=== PATIENT | female | born 1935 | race Caucasian/White ===

== ENCOUNTER 2016-11-20 07:22 | Emergency (ER) | payer MEDICARE, OTHER ==
[~2016-11-20] VITALS: Ht 157.5 cm; Wt 59.0 kg
[~2016-11-20 07:22] MED LIST: AMIT10 PO; ATOR10 PO; CARV6.25 PO; CREON6 PO; FOLI1 PO; FURO20 PO; HYDR200T3 PO; LEVO50IN PO; LORA0.5T PO; METH2.5 PO; NITR0.4S SL; PLAV75TA PO; POTA10IN2 PO; PRED5SOL PO; RAMI2.5C29 PO; ULTR50TA PO
[2016-11-20 07:28] VITALS: BP 150/95; PULSE 90; RESP 18; TEMP 98.7; O2SAT 94
[2016-11-20] MEDS ORDERED: AMIT10TA6 PO ×2 (07:38)
[2016-11-20] MEDS ORDERED: CARV6.252 PO ×2 (07:38)
[2016-11-20] MEDS ORDERED: CLOP75TA PO ×2 (07:38)
[2016-11-20] MEDS ORDERED: PRED5TAB PO ×2 (07:38)
[2016-11-20] MEDS ORDERED: RAMI2.5C PO ×2 (07:38)
[2016-11-20] MEDS ORDERED: LEVO150T7 PO ×2 (07:38)
[2016-11-20] MEDS ORDERED: CREON6 PO ×2 (07:38)
--- NOTE | 2016-11-20 07:42 | PD ---
HPI Chief Complaint: Pain: Acute or Chronic Time Seen by Provider: 07:33 Travel History International Travel<30 days: No Contact w/Intl Traveler<30days: No Traveled to known affect area: No History of Present Illness HPI Patient is an 81-year-old female who presents to emergency room with complaints of pains from her waist down. Patient reports that she fell a week and a half before [place], reports that she was seen by her primary care doctor and had x -rays performed. Reports that they noted a hairline fracture to her pelvis. Patient reports that she has started rehabilitation, and has been going to rehabilitation for the past 3 months. Patient reports that she had a "hard" session on Friday and has been sore from her rehabilitation session since Friday. Patient denies any new fall or injuries. Patient denies any fever or chills. Patient reports that she feels sore from rehabilitation and came to the ER for evaluation. Reports, "I was told that if I had any pain that I was just supposed to go to the ER so that you can take all my pain away." Patient has not taken any pain medications [id number] including Tylenol or ibuprofen. Patient with no fevers or chills. Patient with no chest pain or shortness of breath. Patient with no other complaints. PFSH Past Medical History Arthritis: Yes Autoimmune Disease: Yes (LUPUS) Blood Disorders: No Depression: Yes Cancer: No Cardiovascular Problems: Yes High Cholesterol: Yes Chemotherapy: No Chest Pain: Yes Congestive Heart Failure: Yes COPD: Yes Cerebrovascular Accident: No Coronary Artery Disease: Yes Diabetes: No Diminished Hearing: Yes Endocrine: Yes Genitourinary: Yes (stress incontinence) Hypertension: Yes Immune Disorder: Yes (lupus) Implanted Vascular Access Dvce: Yes Musculoskeletal: Yes Neurologic: No Psychiatric: Yes Reproductive: No Respiratory: Yes Immunizations Current: Yes Migraines: Yes Myocardial Infarction: Yes Radiation Therapy: No Thyroid Disease: Yes ?: Not Menopausal: Yes Past Surgical History Abdominal Surgery: Yes (AORTA STENOSIS, 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) Appendectomy: Yes (1944) Body Medical Devices: DENTAL IMPLANTS Coronary Artery Bypass Graft: Yes (QUAD BYPASS 1999) Ear Surgery: Yes (BILAT CATATRACTS, MAC DEGENERATION BILAT) Gynecologic Surgery: Yes (HYSTERECTOMY) Hysterectomy: Yes (partial) Tonsillectomy: Yes (1936) Other Surgery: Yes (hysterectomy, appendectomy, CABG 4 vessel 1999) Social History Alcohol Use: No Tobacco Use: No (quit in 1992) Substance Use: No Allergies-Medications (Allergen,Severity, Reaction): Coded Allergies: Sulfa (Verified Allergy, Severe, Rash, 11/20/16) Codeine (Verified Adverse Reaction, Severe, VOMITING, 11/20/16) NAUSEA Reported Meds & Prescriptions Reported Meds & Active Scripts Active Reported Amitriptyline (Amitriptyline HCl) 10 Mg Tab 10 Mg PO BID Ramipril 2.5 Mg Cap 2.5 Mg PO BID Carvedilol 6.25 Mg Tab 6.25 Mg PO BID Prednisone 5 Mg Tab 5 Mg PO DAILY Clopidogrel (Clopidogrel Bisulfate) 75 Mg Tab 75 Mg PO DAILY Levothyroxine (Levothyroxine Sodium) 150 Mcg Tab 150 Mcg PO DAILY Creon (Amylase/Lipase/Protease) 6,000-19,000-30,000 Units Cap 1 Cap PO DAILY Review of Systems General / Constitutional: No: Fever Eyes: No: Visual changes HENT: No: Headaches Cardiovascular: No: Chest Pain or Discomfort Respiratory: No: Shortness of Breath Gastrointestinal: No: Abdominal Pain Genitourinary: No: Dysuria Musculoskeletal: Positive: Myalgias, Arthralgias, No: Pain Skin: No Rash Neurologic: No: Weakness Psychiatric: No: Depression Endocrine: No: Polydipsia Hematologic/Lymphatic: No: Easy Bruising Physical Exam Narrative GENERAL: No acute distress, nontoxic SKIN: Warm and dry. HEAD: Atraumatic. Normocephalic. EYES: Pupils equal and round. No scleral icterus. No injection or drainage. ENT: No nasal bleeding or discharge. Mucous membranes pink and moist. NECK: Trachea midline. No JVD. CARDIOVASCULAR: Regular rate and rhythm. No murmur appreciated. RESPIRATORY: No accessory muscle use. Clear to auscultation. Breath sounds equal bilaterally. GASTROINTESTINAL: Abdomen soft, non-tender, nondistended. Hepatic and splenic margins not palpable. MUSCULOSKELETAL: No obvious deformities. No clubbing. No cyanosis. No edema. NEUROLOGICAL: Awake and alert. No obvious cranial nerve deficits. Motor grossly within normal limits. Normal speech. PSYCHIATRIC: Appropriate mood and affect; insight and judgment normal. Data Data Last Documented VS Vital Signs Date Time Temp Pulse Resp B/P Pulse Ox O2 Delivery O2 Flow Rate FiO2 11/20/16 08:02 92 16 99 11/20/16 07:28 98.7 150/95 Orders Acetaminophen (Tylenol) (11/20/16 07:45) MDM Medical Decision Making Medical Screen Exam Complete: Yes Emergency Medical Condition: Yes Interpretation(s) Vital Signs Date Time Temp Pulse Resp B/P Pulse Ox O2 Delivery O2 Flow Rate FiO2 11/20/16 07:28 98.7 90 18 150/95 94 Differential Diagnosis Muscle strain from Rehab Narrative Course 81-year-old female who suffered a fall 1-1/2 weeks before [place], currently in rehabilitation for the past 3 weeks and she suffered a hairline pelvic fracture and had pains all over body after fall. Patient reports that she had extensive session on Friday and feels increased soreness from her waist down after her session. Patient with no new traumas or any new injuries. Patient here for evaluation of pain. On evaluation, patient with no new injuries, patient with good range of motion to both upper and lower extremity's. Patient has not tried any ibuprofen or acetaminophen as outpatient, will give patient a dose of acetaminophen in ER. Patient with no new falls or injuries, will observe patient after medications given to patient. Patient reevaluated, patient reports that she is feeling much better. Patient instructed to stretch after her rehabilitation sessions. Patient will follow- up with her primary care doctor and will return to ER as needed. Patient requesting to be discharged to home with her sister this time. Diagnosis Primary Impression: Muscle strain Patient Instructions: General Instructions Additional Instructions: Please return to ER as needed Please follow-up with your primary care doctor Disposition: 01 DISCHARGE HOME Condition: Stable Naheed Garcia DO Nov 20, 2016 07:41
[2016-11-20] MEDS ORDERED: ACETAMINOPHEN 325 MG TAB PO ONE (07:45)
[2016-11-20 08:02] VITALS: PULSE 92; RESP 16; O2SAT 99
[2016-11-20 09:07] VITALS: RESP 16
[2016-11-20 09:15] VITALS: BP 146/89
== END 2016-11-20 09:16 | disposition home or self-care (01) ==
LOC: PHED 07:22
DX: S32.89XA Fracture of other parts of pelvis, initial encounter for closed fracture (principal); T14.8 Other injury of unspecified body region; M32.9 Systemic lupus erythematosus, unspecified; F32.9 Major depressive disorder, single episode, unspecified; E78.00 Pure hypercholesterolemia, unspecified; Z95.1 Presence of aortocoronary bypass graft; I25.10 Atherosclerotic heart disease of native coronary artery without angina pectoris; I50.9 Heart failure, unspecified; J44.9 Chronic obstructive pulmonary disease, unspecified; I25.2 Old myocardial infarction; W18.30XD Fall on same level, unspecified, subsequent encounter; Y93.9 Activity, unspecified; Y99.9 Unspecified external cause status
CPT/HCPCS: 99283

== ENCOUNTER 2016-11-21 21:35 | Inpatient (IN) | payer MEDICARE, OTHER ==
[~2016-11-21] VITALS: Ht 165.1 cm; Wt 62.0 kg
[~2016-11-21 21:35] MED LIST changes: +AMIT10TA6 PO; +CARV6.252 PO; +CLOP75TA PO; +LEVO150T7 PO; +PRED5TAB PO; +RAMI2.5C PO
[2016-11-21 21:45] VITALS: BP 127/64; PULSE 59; RESP 18; TEMP 98.6; O2SAT 98
[2016-11-21 22:00] VITALS: RESP 18
[2016-11-21] MEDS ORDERED: SODIUM CHLORIDE 0.9% FLUSH 5 ML FLUSH IVF PRN ×2 (22:00→23:45)
[2016-11-21 22:10] LABS: AUTOMATED NEUTROPHIL # 6.1 TH/MM3 (1.8-7.7); BASOPHIL % 0.2 % (0.0-2.0); EOSINOPHIL % 0.4 % (0.0-4.0); HEMATOCRIT 31.4 % (35.0-46.0); HEMO FLAGS DIFF FINAL; LYMPH % 11.8 % (9.0-44.0); LYMPHOCYTE # 0.9 TH/MM3 (1.0-4.8); MEAN CELL VOLUME 90.8 FL (80.0-100.0); MEAN CORPUSCULAR HGB CONC 34.1 % (32.0-36.0); MONO % 8.9 % (0.0-8.0); NEUT % 78.7 % (16.0-70.0); PLATELET COUNT 240 TH/MM3 (150-450); RED BLOOD COUNT 3.46 MIL/MM3 (4.00-5.30); RED CELL DISTRIBUTION WIDTH 14.1 % (11.6-17.2); WHITE BLOOD COUNT 7.8 TH/MM3 (4.0-11.0)
[2016-11-21 22:15] LABS: APTT (PATIENT) 31.1 SEC (24.3-30.1); PROTHROMBIN TIME - PATIENT 11.3 SEC (9.8-11.6)
--- NOTE | 2016-11-21 22:15 | PD ---
HPI Chief Complaint: Chest Pain Time Seen by Provider: 22:10 Travel History International Travel<30 days: No Contact w/Intl Traveler<30days: No Traveled to known affect area: No History of Present Illness HPI 81-year-old female that presents to the ED for evaluation of chest pain. Per patient she had an episode of chest pain on the left side for about 5 minutes before ambulance arrived to the house. Per patient she's had a history of bypass in the past follows with Dr. Gandhi for cardiology. She immediately took 3 nitros with relief of the pain from which she is pain-free now. She does state having a history of hypertension and high cholesterol and previous heart history in herself. 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 She states that at this time she has no chest pain but she does have some shortness of breath. She has an allergy to codeine and sulfa. She was given 2 baby aspirins. She already takes Plavix. She denies any abdominal pain. No nausea or vomiting. She does state feeling somewhat short of breath. Patient states that she for the most part states in bed secondary to a fracture to her hip. She is apparently undergoing rehabilitation for this but she still not able to fully ambulate on her own. PFSH Past Medical History Arthritis: Yes Autoimmune Disease: Yes (LUPUS) Blood Disorders: No Depression: Yes Cancer: No Cardiovascular Problems: Yes High Cholesterol: Yes Chemotherapy: No Chest Pain: Yes Congestive Heart Failure: Yes COPD: Yes Cerebrovascular Accident: No Coronary Artery Disease: Yes Diabetes: No Diminished Hearing: Yes Endocrine: Yes Gastrointestinal Disorders: No Genitourinary: Yes (stress incontinence) Hypertension: Yes Immune Disorder: Yes (lupus) Implanted Vascular Access Dvce: Yes Musculoskeletal: Yes Neurologic: No Psychiatric: Yes Reproductive: No Respiratory: Yes Immunizations Current: Yes Migraines: Yes Myocardial Infarction: Yes Radiation Therapy: No Thyroid Disease: Yes Tetanus Vaccination: < 5 Years Influenza Vaccination: Yes Menopausal: Yes Past Surgical History Abdominal Surgery: Yes (AORTA STENOSIS, 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) Appendectomy: Yes (1944) Body Medical Devices: DENTAL IMPLANTS Coronary Artery Bypass Graft: Yes (QUAD BYPASS 1999) Ear Surgery: Yes (BILAT CATATRACTS, MAC DEGENERATION BILAT) Gynecologic Surgery: Yes (HYSTERECTOMY) Hysterectomy: Yes (partial) Tonsillectomy: Yes (1936) Other Surgery: Yes (hysterectomy, appendectomy, CABG 4 vessel 1999) Social History Alcohol Use: No Tobacco Use: No (quit in 1992) Substance Use: No Allergies-Medications (Allergen,Severity, Reaction): Coded Allergies: Sulfa (Verified Allergy, Severe, Rash, 11/21/16) Codeine (Verified Adverse Reaction, Severe, VOMITING, 11/21/16) NAUSEA Reported Meds & Prescriptions Reported Meds & Active Scripts Active Reported Amitriptyline (Amitriptyline HCl) 10 Mg Tab 10 Mg PO BID Ramipril 2.5 Mg Cap 2.5 Mg PO BID Carvedilol 6.25 Mg Tab 6.25 Mg PO BID Prednisone 5 Mg Tab 5 Mg PO DAILY Clopidogrel (Clopidogrel Bisulfate) 75 Mg Tab 75 Mg PO DAILY Levothyroxine (Levothyroxine Sodium) 150 Mcg Tab 150 Mcg PO DAILY Creon (Amylase/Lipase/Protease) 6,000-19,000-30,000 Units Cap 1 Cap PO DAILY Review of Systems Except as stated in HPI: all other systems reviewed are Neg Physical Exam Narrative GENERAL: SKIN: Warm and dry. HEAD: Atraumatic. Normocephalic. EYES: Pupils equal and round. No scleral icterus. No injection or drainage. ENT: No nasal bleeding or discharge. Mucous membranes pink and moist. Tongue is midline. No uvula deviation. NECK: Trachea midline. No JVD. CARDIOVASCULAR: Regular rate and rhythm. No murmurs, S3, S4. Chest is not reproducible with touch. RESPIRATORY: No accessory muscle use. Clear to auscultation. Breath sounds equal bilaterally. GASTROINTESTINAL: Abdomen soft, non-tender, nondistended. Hepatic and splenic margins not palpable. MUSCULOSKELETAL: Extremities without clubbing, cyanosis, or edema. No obvious deformities. Full range of motion of the upper and lower extremities bilaterally. 2+ pulses bilaterally. NEUROLOGICAL: Awake and alert. No obvious cranial nerve deficits. Motor grossly within normal limits. Five out of 5 muscle strength in the arms and legs. Normal speech. PSYCHIATRIC: Appropriate mood and affect; insight and judgment normal. Data Data Last Documented VS Vital Signs Date Time Temp Pulse Resp B/P Pulse Ox O2 Delivery O2 Flow Rate FiO2 11/21/16 21:47 63 18 98 Nasal Cannula 2 11/21/16 21:45 98.6 127/64 Orders Electrocardiogram (11/21/16 21:54) Basic Metabolic Panel (Bmp) (11/21/16 21:54) B-Type Natriuretic Peptide (11/21/16 21:54) Ckmb (Isoenzyme) Profile (11/21/16 21:54) Complete Blood Count With Diff (11/21/16 21:54) Magnesium (Mg) (11/21/16 21:54) Prothrombin Time / Inr (Pt) (11/21/16 21:54) Act Partial Throm Time (Ptt) (11/21/16 21:54) Troponin I (11/21/16 21:54) Chest, Single Ap (11/21/16 21:54) Ecg Monitoring (11/21/16 21:54) Bilateral Bp Monitoring (11/21/16 21:54) Iv Access Insert/Monitor (11/21/16 21:54) Oximetry (11/21/16 21:54) Oxygen Administration (11/21/16 21:54) Sodium Chloride 0.9% Flush (Ns Flush) (11/21/16 22:00) Labs Laboratory Tests Test 11/21/16 22:00 White Blood Count 7.8 TH/MM3 Red Blood Count 3.46 MIL/MM3 Hemoglobin 10.7 GM/DL Hematocrit 31.4 % Mean Corpuscular Volume 90.8 FL Mean Corpuscular Hemoglobin 31.0 PG Mean Corpuscular Hemoglobin 34.1 % Concent Red Cell Distribution Width 14.1 % Platelet Count 240 TH/MM3 Mean Platelet Volume 8.4 FL Neutrophils (%) (Auto) 78.7 % Lymphocytes (%) (Auto) 11.8 % Monocytes (%) (Auto) 8.9 % Eosinophils (%) (Auto) 0.4 % Basophils (%) (Auto) 0.2 % Neutrophils # (Auto) 6.1 TH/MM3 Lymphocytes # (Auto) 0.9 TH/MM3 Monocytes # (Auto) 0.7 TH/MM3 Eosinophils # (Auto) 0.0 TH/MM3 Basophils # (Auto) 0.0 TH/MM3 CBC Comment DIFF FINAL Differential Comment Prothrombin Time 11.3 SEC Prothromb Time International 1.0 RATIO Ratio Activated Partial 31.1 SEC Thromboplast Time MDM Medical Decision Making Medical Screen Exam Complete: Yes Emergency Medical Condition: Yes Medical Record Reviewed: Yes Interpretation(s) EKG shows sinus rhythm with no sign of acute ischemia at this time or arrhythmia. No changes from prior. Read by me and attending Dr. Johnson. Differential Diagnosis ACS versus chest pain versus a typical chest pain versus pneumonia versus cardiac chest pain versus angina versus unstable angina Narrative Course 81-year-old female that presents to the ED for evaluation of chest pain. Patient was properly examined and was found to have signs and symptoms consistent with appears to be likely cardiac chest pain. Patient does appear to have signs of angina. Symptoms improved with her on nitroglycerin. My attending evaluated the patient and was made aware of the EKG findings and patient's history. She recommends the cardiac workup. Case was signed out to my attending pending disposition and further workup. Kin Devine Nov 21, 2016 22:15
--- NOTE | 2016-11-21 22:25 | RADRPT ---
EXAM DATE/TIME: 11/21/2016 22:03 [facility] COMPARISON: CHEST SINGLE AP, October 24, 2013, 22:55. INDICATIONS : Chest pain MEDICAL HISTORY : Hypertension. SURGICAL HISTORY : ENCOUNTER: Initial ACUITY: 1 day PAIN SCORE: 0/10 LOCATION: Bilateral chest FINDINGS: There is focal parenchymal opacity at the lateral left lung base which may be mild lingular infiltrat e. Right lung is grossly clear. Mild diffuse interstitial prominence is present. The cardiomediastina l contours are grossly satisfactory accounting for rotation. CONCLUSION: Lingular infiltrate Samy Lorenzana MD on November 21, 2016 at 22:23 Board Certified Radiologist. This report was verified electronically.
[2016-11-21 22:33] LABS: BICARBONATE 32.1 MEQ/L (21.0-32.0); MAGNESIUM 2.4 MG/DL (1.5-2.5); POTASSIUM 3.9 MEQ/L (3.5-5.1)
--- NOTE | 2016-11-21 22:54 | PD ---
Data Data Last Documented VS Vital Signs Date Time Temp Pulse Resp B/P Pulse Ox O2 Delivery O2 Flow Rate FiO2 11/21/16 21:47 63 18 98 Nasal Cannula 2 11/21/16 21:45 98.6 127/64 Orders Electrocardiogram (11/21/16 21:54) Basic Metabolic Panel (Bmp) (11/21/16 21:54) B-Type Natriuretic Peptide (11/21/16 21:54) Ckmb (Isoenzyme) Profile (11/21/16 21:54) Complete Blood Count With Diff (11/21/16 21:54) Magnesium (Mg) (11/21/16 21:54) Prothrombin Time / Inr (Pt) (11/21/16 21:54) Act Partial Throm Time (Ptt) (11/21/16 21:54) Troponin I (11/21/16 21:54) Chest, Single Ap (11/21/16 21:54) Ecg Monitoring (11/21/16 21:54) Bilateral Bp Monitoring (11/21/16 21:54) Iv Access Insert/Monitor (11/21/16 21:54) Oximetry (11/21/16 21:54) Oxygen Administration (11/21/16 21:54) Sodium Chloride 0.9% Flush (Ns Flush) (11/21/16 22:00) Labs Laboratory Tests Test 11/21/16 22:00 White Blood Count 7.8 TH/MM3 Red Blood Count 3.46 MIL/MM3 Hemoglobin 10.7 GM/DL Hematocrit 31.4 % Mean Corpuscular Volume 90.8 FL Mean Corpuscular Hemoglobin 31.0 PG Mean Corpuscular Hemoglobin 34.1 % Concent Red Cell Distribution Width 14.1 % Platelet Count 240 TH/MM3 Mean Platelet Volume 8.4 FL Neutrophils (%) (Auto) 78.7 % Lymphocytes (%) (Auto) 11.8 % Monocytes (%) (Auto) 8.9 % Eosinophils (%) (Auto) 0.4 % Basophils (%) (Auto) 0.2 % Neutrophils # (Auto) 6.1 TH/MM3 Lymphocytes # (Auto) 0.9 TH/MM3 Monocytes # (Auto) 0.7 TH/MM3 Eosinophils # (Auto) 0.0 TH/MM3 Basophils # (Auto) 0.0 TH/MM3 CBC Comment DIFF FINAL Differential Comment Prothrombin Time 11.3 SEC Prothromb Time International 1.0 RATIO Ratio Activated Partial 31.1 SEC Thromboplast Time Sodium Level 141 MEQ/L Potassium Level 3.9 MEQ/L Chloride Level 104 MEQ/L Carbon Dioxide Level 32.1 MEQ/L Anion Gap 5 MEQ/L Blood Urea Nitrogen 9 MG/DL Creatinine 0.68 MG/DL Estimat Glomerular Filtration 83 ML/MIN Rate Random Glucose 103 MG/DL Calcium Level 8.1 MG/DL Magnesium Level 2.4 MG/DL Total Creatine Kinase 80 U/L Troponin I 0.05 NG/ML [facility] Supervised Visit with CATRACHITA: Yes Narrative Course The history, exam, and medical decision-making in the associated midlevel provider note were completed with my assistance. I reviewed and agree with the findings presented. I attest that I had a [id number] encounter with the patient on the same day, and personally performed and documented my assessment and findings in the medical record. *My assessment and Findings: This is an 81-year-old female who has a history of CABG in the past who presents to the emergency department with chest discomfort that started about an hour prior to arrival, lasting for about 20 minutes and then subsiding after she took some nitroglycerin. Patient reports that she's been in physical therapy over the past week and has been struggling with low back pain. She wonders if this brought her chest pain on. EKG was obtained which does appear ischemic with Q waves in the inferior leads and ST segment elevation in the inferior leads less than a millimeter with ST depressions in the lateral leads, all unchanged from prior EKG. She no longer has any chest discomfort in the emergency department and her symptoms have resolved, so I don' t think she meets STEMI alert criteria. Patient will be admitted to the chest pain center for serial cardiac enzymes and consultation with cardiology. Lauren Johnson MD Nov 21, 2016 22:54
[2016-11-21] MEDS ORDERED: MORPHINE SULFATE 4 MG/ML INJ IV PUSH ONE (23:00)
[2016-11-21 23:30] VITALS: BP 154/70; PULSE 65; RESP 16; O2SAT 98
[2016-11-22] VITALS (9 sets, daily range): BP systolic 127–167; BP diastolic 63–77; PULSE 58–73; RESP 16–20; TEMP 97.9–98.7; O2SAT 92–96
[2016-11-22] MEDS ORDERED: NITROGLYCERIN 0.4 MG SL 25 TABS/BTL SL PRN (02:00)
[2016-11-22] MEDS ORDERED: traMADol HCL 50 MG TAB PO ONE (02:00)
[2016-11-22] MEDS: SODIUM CHLORIDE 0.9% FLUSH 5 ML FLUSH IVF SCH ×2 (09:00→22:20)
[2016-11-22] MEDS ORDERED: REGADENOSON INJ 0.4 MG/5 ML SYR ONE (09:40)
--- NOTE | 2016-11-22 11:16 | RADRPT ---
EXAM DATE/TIME: 11/22/2016 09:18 [facility] COMPARISON: No previous studies available for comparison. INDICATIONS : Left chest pain for one day. Angina. DOSE: 25.9 mCi Tc99m Myoview at stress. 8.6 mCi Tc99m Myoview at rest. 0.4 mg Lexiscan STRESS SYMPTOMS: Dyspnea. EJECTION FRACTION: 47% MEDICAL HISTORY : Lupus. Aorta stenosis SURGICAL HISTORY : Appendectomy. Angioplasty. CABG Hysterectomy ENCOUNTER: Initial ACUITY: 1 day PAIN SCALE: 2/10 LOCATION: Left chest discomfort TECHNIQUE: The patient underwent pharmacologic stress with infusion of prescribed dose. Continuous ECG tracing was monitored during stress. Gated SPECT imaging was performed after stress and conventional SPECT i maging was performed at rest. The examination was performed on a SPECT/CT scanner, both attenuation and non-corrected datasets were reviewed. FINDINGS: DISTRIBUTION: The maximum perfused segment at stress is in the anterolateral wall. PERFUSION STUDY: The pattern of perfusion at stress is within normal limits. GATED STUDY: There is intact wall motion and thickening without hypokinetic or dyskinetic segments. CONCLUSION: No reversible perfusion defect to indicate stress-induced myocardial ischemia identified. RISK CATEGORY: Low (<1% Annual Mortality Rate) Iraj Hughes MD on November 22, 2016 at 11:13 Board Certified Radiologist. This report was verified electronically.
--- NOTE | 2016-11-22 11:25 | MH ---
cc: LISA MANSFIELD MD DATE OF ADMISSION: 11/21/2016 DATE OF : 1935 CHIEF COMPLAINT Hip pain. HISTORY OF PRESENT ILLNESS This is an 81-year-old female who presented to the ED complaining of her left hip bothering her. The patient states she had a fracture within her pelvis somewhat recently and had been going through therapy. She states on Friday her therapy sessions intensified quite a bit and really bothered her in her hip area. She states for the last two days she has been unable to walk secondary to the pain. She states that last evening the discomfort in her hip was so intense with cramping that she thinks it caused her to have discomfort in her chest. She describes it as a heaviness in her chest lasting five minutes. She states she should three nitroglycerin rather rapidly for it. She does have a history of heart disease and had a bypass 20 years ago. She does not really remember what those symptoms were. She continues to follow with cardiology and follows with Dr. Yeung. She believes the last stress test would have been a few years ago at least, believes it was normal at the time. Currently denies any chest comfort. She states she is still not able to ambulate well. PAST MEDICAL HISTORY 1. CAD with CABG 20 years ago approximately. 2. Lupus. 3. History of pelvic fracture. 4. Hypertension. 5. Hypothyroidism. She is not aware of her lipid status but I do not see a statin on her medication list. ALLERGIES 1. CODEINE. 2. SULFA. MEDICATIONS She states she is really not sure but states the list should be accurate. The list that we have includes: 1. Ramipril. 2. Amitriptyline. 3. Carvedilol. 4. Creon. 5. Plavix. 6. Levothyroxine. 7. Prednisone. I will try to get this confirmed here shortly. REVIEW OF SYSTEMS GENERAL: Denies fevers or chills. Denies recent illnesses. HEENT: Denies headache, earache, sore throat, difficulty swallowing. CARDIOVASCULAR: Describes the discomfort as mentioned above. She states it lasted five minutes. There was no shortness of breath, nausea or diaphoresis. RESPIRATORY: Denies shortness of breath or inspirational chest discomfort. Denies coughing, wheezing or hemoptysis. GASTROINTESTINAL: Denies nausea, vomiting, diarrhea, abdominal pain or blood in the stool. MUSCULOSKELETAL: Complains of left hip pain. Denies calf pain or swelling. NEUROVASCULAR: Denies headache or dizziness. ENDOCRINE: Denies polyuria or polydipsia. HEMATOLOGIC: Denies easy bruising. SKIN: Denies rash or itching. PHYSICAL EXAMINATION VITAL SIGNS: The vital signs in the emergency department initially included a blood pressure of 127/64, heart rate 59, respirations 18, pulse oximetry 98% on room air, and she was afebrile. The most recent vital signs include a blood pressure of 163/72, heart rate 72, respirations 20, pulse oximetry 94% on room air and she was afebrile. GENERAL: The patient is seen in the examination room in no apparent distress. She is pleasant. She speaks in clear and complete sentences. HEENT: Atraumatic, normocephalic. NECK: Supple without lymphadenopathy. Trachea is midline. No JVD or carotid bruits. CARDIOVASCULAR: Regular rate and rhythm without gallop or rub. systolic murmur at the left sternal border. PULMONARY: Lungs are clear to auscultation bilaterally. No wheezing, rales or rhonchi. No use of accessory muscles. ABDOMEN: Nontender. Bowel sounds are normal. EXTREMITIES: The patient really did not want to move her left hip. This was not attempted. No calf tenderness or edema. Strong dorsalis pedis pulses bilaterally. NEUROLOGIC: The patient is alert and oriented. Cranial nerves II through XII are grossly intact. No focal deficits. Speech is clear. SKIN: No rashes. Turgor is normal. LABORATORY DATA CBC is essentially unremarkable. She is mildly anemic with a hemoglobin and hematocrit of 10.7 and 31.4. Coagulation studies are unremarkable. A basic metabolic profile is essentially unremarkable. Serial cardiac enzymes are normal x3. BNP is elevated at 650. IMAGING DATA A single-view chest x-ray read by the radiologist as lingular infiltrate. This is reviewed with Dr. Mansfield and he also looked at the chest x-ray. The patient does not have any symptoms of pneumonia and will not be treated as so. No signs of failure either. EKG DATA EKGs have sinus rhythm, sinus bradycardia with frequent PVCs. ASSESSMENT AND PLAN 1. Chest pain: The patient's discomfort is atypical. She has had serial cardiac enzymes and EKGs for ruling out purposes. Dr. Mansfield has evaluated the patient and does not believe this is cardiac related; however, we will get a Lexiscan to confirm and if that is not ischemic she will be admitted to the hospitalist service for her inability to ambulate. Dr. Mansfield also spoke with the patient's sports physical therapist, Dr. Yeung, and he agrees with this plan. If the stress test were to be abnormal we would certainly discuss again with Dr. Yeung. 2. Hip pain: The patient states her hip is bothering her so much she cannot bear weight and cannot ambulate. The patient will need to be in the hospital with hospitalist to evaluate this and get physical therapy involved and determine what the best course is afterwards. 3. History CAD: Will reassess with stress testing. 4. Hypertension: Continue current medication. 5. The patient is stable at this time. She is agreeable to this plan. Dictated by: Jon Perea PA-C MD SUSAN Vazquez/CHEN /10:29 AM /11:24 AM
[2016-11-22] MEDS ORDERED: HYDR-3534 PO ×2 (11:48)
[2016-11-22] MEDS ORDERED: ATOR10TA15 PO ×2 (11:48)
[2016-11-22] MEDS ORDERED: FURO1TAB60 PO ×2 (11:48)
[2016-11-22] MEDS ORDERED: FOLI1TAB4 PO ×2 (11:48)
[2016-11-22] MEDS ORDERED: METH2.5T PO ×2 (11:48)
[2016-11-22] MEDS ORDERED: TRAM50TA PO ×2 (11:48)
[2016-11-22] MEDS ORDERED: PLAQ200T PO ×2 (11:48)
[2016-11-22] MEDS ORDERED: K-TA10TA PO ×2 (11:48)
[2016-11-22] MEDS ORDERED: MORPHINE SULFATE 4 MG/ML INJ IV PUSH PRN (12:00)
[2016-11-22] MEDS ORDERED: MORPHINE SULFATE 4 MG/ML INJ IV PRN (12:15)
[2016-11-22] MEDS ORDERED: ACETAMINOPHEN 325 MG TAB PO PRN (12:15)
[2016-11-22] MEDS ORDERED: ONDANSETRON HCL 4 MG/2 ML VIAL IVP PRN (12:15)
[2016-11-22] MEDS ORDERED: traMADol HCL 50 MG TAB PO PRN (12:15)
[2016-11-22] MEDS ORDERED: NALOXONE HCL 0.4 MG/ML AMP IV PRN (12:15)
[2016-11-22] MEDS: RAMIPRIL 2.5 MG CAP PO SCH ×2 (13:00→22:20)
[2016-11-22] MEDS: FUROSEMIDE 40 MG TAB PO SCH (13:34)
[2016-11-22] MEDS: ACETAMINOPHEN/HYDROcodone 325 MG/7.5 MG TAB PO PRN ×3 (13:34→19:08)
[2016-11-22] MEDS: CARVEDILOL 6.25 MG TAB PO SCH ×2 (13:34→22:21)
[2016-11-22] MEDS: predniSONE 5 MG TAB PO SCH (13:34)
[2016-11-22] MEDS: CLOPIDOGREL 75 MG TAB PO SCH (13:34)
[2016-11-22] MEDS: LEVOTHYROXINE SODIUM 150 MCG TAB PO SCH (13:35)
[2016-11-22] MEDS ORDERED: ACETAMINOPHEN/HYDROcodone 325 MG/5 MG TAB PO PRN (15:00)
--- NOTE | 2016-11-22 15:06 | HHI.PR ---
Subjective Remarks Follow-up for chest pain and pelvic pain. The patient states that she came to the hospital for angina. She was seen and cleared by cardiology and the chest pain center. However patient is unable to ambulate secondary to recent pelvic fracture. She states that she had a mechanical fall a few weeks ago and sustained a "hairline fracture" of her pelvis diagnosed by her PCP. She states the pain in her pelvis is not bad, but she is having associated muscle spasms in her buttocks. She denies any back pain. She denies any lower extremity paresthesias. She states that normally she is on tramadol at home, but that has not helped the pain. She also received morphine in the ED, and states that that did not help much either. The pain is exacerbated when she tries to sit up or move her lower extremities. She's been unable to tolerate NSAIDs in the past due to recurrent bouts of pancreatitis. Has been doing outpatient PT. Objective Vitals Vital Signs Date Time Temp Pulse Resp B/P Pulse Ox O2 Delivery O2 Flow Rate FiO2 11/22/16 12:16 98.6 71 20 164/74 94 11/22/16 11:53 73 11/22/16 08:01 98.6 72 20 163/72 94 11/22/16 04:21 63 11/22/16 03:59 97.9 67 16 154/67 96 11/22/16 02:47 14 11/22/16 01:00 98.0 64 16 167/71 95 11/21/16 23:30 65 16 154/70 98 Nasal Cannula 2 11/21/16 23:24 16 11/21/16 22:00 18 11/21/16 22:00 99 Nasal Cannula 2 11/21/16 21:47 63 18 98 Nasal Cannula 2 11/21/16 21:45 98.6 59 18 127/64 98 Result Diagram: 11/21/16219911/21/162199 Imaging Last Impressions Myocardial Perfusion Scan Nuc Med 11/22/16 0000 Signed Impressions: Service Date/Time: Tuesday, November 22, 2016 09:18 - CONCLUSION: No reversible perfusion defect to indicate stress-induced myocardial ischemia identified. RISK CATEGORY: Low (<1%% Annual Mortality Rate) Iraj Hughes MD Chest X-Ray 11/21/16 [id number] Signed Impressions: Service Date/Time: October 22:03 - CONCLUSION: Lingular infiltrate Samy Lorenzana MD Objective Remarks GENERAL: Well-developed well-nourished pleasant elderly female. In no acute distress. SKIN: Warm and dry. No lesions noted. HEENT: Normocephalic. Pupils equal and round. Mucous membranes pink and moist. CARDIOVASCULAR: Regular rate and rhythm. No murmur appreciated. RESPIRATORY: No accessory muscle use. Clear to auscultation. Breath sounds equal bilaterally. GASTROINTESTINAL: Abdomen soft, non-tender, nondistended. Bowel sounds x4. MUSCULOSKELETAL: No obvious deformities. No clubbing or cyanosis. No edema. Pain with ROM of bilateral lower extremities. No pain with palpation of anterior pelvis. NEUROLOGICAL: Awake and alert. No focal neurological deficits. Moves upper and lower extremities spontaneously. Normal speech. PSYCHIATRIC: Appropriate mood and affect; insight and judgment normal. A/P Problem List: (1) Pelvic fracture ICD Code: S32.9XXA Status: Acute (2) CAD (coronary artery disease) ICD Code: I25.10 Status: Chronic Assessment and Plan 81-year-old female with past mental history of CAD, lupus, HTN, hypothyroidism, and recent pelvic fracture. Patient was admitted to the chest pain center, evaluated by cardiology, had a negative stress test, cleared by cardiology. Admit to medicine for inability to ambulate and pelvic pain. Intractable pain and inability to ambulate s/p recent "hairline" pelvic fracture : Obtain outpatient pelvic imaging. Pain control with oral and intravenous narcotics as needed. Start scheduled Flexeril for muscle spasms. Heating pad. Continue PT. Case management consult support assistant with discharge planning. Fall precautions. Addendum 1530: Outpatient imaging report reviewed: Hip left AP and lateral 10/22 showed left hip joint with normal alignment, left femur appears intact, questionable lucency seen at the left inferior pubic rami, and fracture cannot be excluded. Chest pain with history of CAD: Evaluated by cardiology and the chest pain center. Ruled out for ACS with normal troponins 3. Stress test with no reversible perfusion defect to indicate stress-induced myocardial ischemia. Continue carvedilol, atorvastatin, Plavix. Nitroglycerin as needed. Hypertension: Not optimally controlled. Patient's home BP meds were held last night, now restarted, expect improvement. Continue carvedilol, ramipril, furosemide. Clonidine as needed. Other chronic medical conditions include lupus, hypothyroidism, depression: Stable at this time and will continue home medications as indicated. DVT prophylaxis: SCDs Discharge Planning Anticipate discharge planning with HHC when patient is improved. Problem Qualifiers (1) Pelvic fracture: (2) CAD (coronary artery disease): Qualified Code: I25.118 - Coronary artery disease of [place] heart with stable angina pectoris, unspecified vessel or lesion type Reinaldo Rondon Nov 22, 2016 15:06 Roseann Bryant MD Nov 22, 2016 17:33
--- NOTE | 2016-11-22 15:17 | EKG ---
Date Performed: 11/22/2016 Time Performed: 01:47:25 PTAGE: 81 years EKG: Sinus rhythm WITH OCCASIONAL ECTOPIC PREMATURE COMPLEXES Since previous tracing, no significant change noted ABNO RMAL ECG PREVIOUS TRACING : 11/22/2016 01.46 Since previous tracing, no significant change noted DOCTOR: Hilario Miller Interpretating Date/Time 12/03/2016 07:56:40
--- NOTE | 2016-11-22 15:18 | EKG ---
Date Performed: 11/22/2016 Time Performed: 01:46:39 PTAGE: 81 years EKG: Sinus rhythm WITH FREQUENT VENTRICULAR PREMATURE COMPLEXES WITH OCCASIONAL SUPRAVENTRICULAR PREMATURE COMPLEXES A BNORMAL ECG PREVIOUS TRACING : 11/21/2016 21.43 Since previous tracing, no significant change noted DOCTOR: Hilario Miller Interpretating Date/Time 11/22/2016 15:16:50
--- NOTE | 2016-11-22 15:19 | EKG ---
Date Performed: 11/21/2016 Time Performed: 21:55:06 PTAGE: 81 years EKG: Sinus rhythm ABNORMAL ECG PREVIOUS TRACING : 11/21/2016 21.43 Since previous tracing, no significant change noted DOCTOR: Hilario Miller Interpretating Date/Time 11/22/2016 15:17:56
--- NOTE | 2016-11-22 15:19 | EKG ---
Date Performed: 11/21/2016 Time Performed: 21:43:20 PTAGE: 81 years EKG: SINUS BRADYCARDIA WITH OCCASIONAL VENTRICULAR PREMATURE COMPLEXES WITH OCCASIONAL SUPRAVENT RICULAR PREMATURE COMPLEXES ABNORMAL ECG PREVIOUS TRACING : 03/24/2016 18.46 Since previous tracing, no significant change noted DOCTOR: Hilario Miller Interpretating Date/Time 11/22/2016 15:18:18
--- NOTE | 2016-11-22 15:23 | EKG ---
Date Performed: 11/22/2016 Time Performed: 04:03:23 PTAGE: 81 years EKG: Sinus rhythm WITH OCCASIONAL VENTRICULAR PREMATURE COMPLEXES WITH OCCASIONAL SUPRAVENTRICULAR PREMATURE COMPLEXES ABNORMAL ECG PREVIOUS TRACING : 11/22/2016 01.47 Since previous tracing, no significant change noted DOCTOR: Hilario Miller Interpretating Date/Time 11/22/2016 15:22:52
--- NOTE | 2016-11-22 15:28 | TR ---
Date Performed: 11/22/2016 Time Performed: 09:49:31 DOCTOR: Hilario Miller DRUG LIST: CLINICAL HISTORY: REASON FOR TEST: Angina REASON FOR ENDING: OBSERVATION: CONCLUSION: Lexiscan stress test was performed under standard four minute protocol. Radionuclid e was injected one minute prior to ending the test.Non specific ST changes noted throughout. Nuclear imaging and interpretation are pending. COMMENTS:
[2016-11-22] MEDS ORDERED: cloNIDine HCL 0.1 MG TAB PO PRN (17:00)
[2016-11-22] MEDS: CYCLOBENZAPRINE HCL 10 MG TAB PO SCH ×2 (18:01→22:21)
[2016-11-22] MEDS: LIPASE/PROTEASE/AMYLASE (6,000/19,000/30,000) CAP PO SCH (18:01)
[2016-11-22] MEDS: HYDROXYCHLOROQUINE SULFATE 200 MG TAB PO SCH (22:20)
[2016-11-22] MEDS: ATORVASTATIN 10 MG TAB PO SCH (22:20)
[2016-11-22] MEDS: AMITRIPTYLINE HCL 10 MG TAB PO SCH (22:21)
[2016-11-23] VITALS (10 sets, daily range): BP systolic 112–154; BP diastolic 56–71; PULSE 65–87; RESP 16–19; TEMP 97.8–99; O2SAT 93–97
[2016-11-23] MEDS: ACETAMINOPHEN/HYDROcodone 325 MG/7.5 MG TAB PO PRN ×2 (02:22→17:53)
[2016-11-23] MEDS: LEVOTHYROXINE SODIUM 150 MCG TAB PO SCH (05:57)
[2016-11-23] MEDS: CYCLOBENZAPRINE HCL 10 MG TAB PO SCH ×3 (05:57→21:45)
--- NOTE | 2016-11-23 09:19 | HHI.PR ---
Subjective Remarks Follow up for pelvic pain, inability to ambulate. The patient reports no acute events overnight. Her pain is slightly better today, minimal relief by the oral pain medications, still unable to ambulate secondary to the pain, requiring IV pain med for breakthrough. She denies any further chest pain, shortness of breath, nausea or vomiting. She is reporting some constipation, does not recall date of last BM. She would be agreeable to rehab placement if possible. Objective Vitals Vital Signs Date Time Temp Pulse Resp B/P Pulse Ox O2 Delivery O2 Flow Rate FiO2 11/23/16 07:45 98.0 68 17 143/69 94 11/23/16 04:01 97.9 70 18 154/70 93 11/23/16 00:06 97.8 69 19 143/70 94 11/22/16 20:28 98.4 66 18 127/63 92 11/22/16 20:00 67 11/22/16 20:00 93 11/22/16 15:58 98.7 58 18 159/77 93 11/22/16 12:16 98.6 71 20 164/74 94 11/22/16 11:53 73 Result Diagram: 11/21/16219911/21/162199 Imaging Last Impressions Myocardial Perfusion Scan Nuc Med 11/22/16 0000 Signed Impressions: Service Date/Time: Tuesday, November 22, 2016 09:18 - CONCLUSION: No reversible perfusion defect to indicate stress-induced myocardial ischemia identified. RISK CATEGORY: Low (<1%% Annual Mortality Rate) Iraj Hughes MD Chest X-Ray 11/21/164 Signed Impressions: Service Date/Time: October 22:03 - CONCLUSION: Lingular infiltrate Samy Lorenzana MD Objective Remarks GENERAL: Well-nourished, well-developed pleasant elderly female patient in [facility]. SKIN: Warm and dry. No rash. HEAD: Normocephalic. Atraumatic. NECK: Supple. Trachea midline. CARDIOVASCULAR: Regular rate and rhythm. S1, S2 noted. No murmur appreciated. RESPIRATORY: No accessory muscle use. Clear to auscultation. Breath sounds equal bilaterally. GASTROINTESTINAL: Abdomen soft, non-tender, nondistended. Normoactive bowel sounds x4. MUSCULOSKELETAL: No obvious deformities. Extremities without clubbing, cyanosis , or edema. Diffuse pelvic pain with ROM exercises and strength testing of b/l lower extremities. NEUROLOGICAL: Awake and alert. No obvious cranial nerve deficits. Motor grossly within normal limits. 5/5 muscle strength in bilateral upper and lower extremities. Normal speech. PSYCHIATRIC: Appropriate mood and affect; insight and judgment normal. Medications and IVs Current Medications Medications (Trade) Dose Ordered Sig/Jeferson Route Start Time Stop Time Status Last Admin (NS Flush) 2 ml UNSCH PRN IVF 11/21/16 23:45 (NS Flush) 2 ml BID IVF 11/22/16 09:00 11/23/16 09:40 (Nitrostat Sl) 0.4 mg Q5M PRN SL 11/22/16 02:00 (Zofran Inj) 4 mg Q6H PRN IVP 11/22/16 12:15 (Tylenol) 650 mg Q6H PRN PO 11/22/16 12:15 (Arco 7.5-325 Mg) 1 tab Q4H PRN PO 11/22/16 12:15 11/23/16 02:22 (Narcan Inj) 0.4 mg UNSCH PRN IV 11/22/16 12:15 (Elavil) 10 mg BID PO 11/22/16 21:00 11/23/16 09:28 (Lipitor) 10 mg HS PO 11/22/16 21:00 11/22/16 22:20 (Coreg) 6.25 mg BID PO 11/22/16 13:00 11/23/16 09:28 (Plavix) 75 mg DAILY PO 11/22/16 13:00 11/23/16 09:28 (Lasix) 40 mg DAILY PO 11/22/16 13:00 11/23/16 09:27 (Synthroid) 150 mcg DAILY@06 PO 11/22/16 13:00 11/23/16 05:57 (KCl) 10 meq DAILY PO 11/23/16 09:00 11/23/16 09:27 (Deltasone) 5 mg DAILY PO 11/22/16 13:00 11/23/16 09:39 (Altace) 2.5 mg BID PO 11/22/16 13:00 11/23/16 09:29 (Flexeril) 5 mg Q8HR PO 11/22/16 15:00 11/23/16 05:57 (Arco 5-325 Mg) 2 tab Q6H PRN PO 11/22/16 15:00 (Creon 6-19-30) 1 cap TIDAC PO 11/22/16 17:00 11/23/16 09:33 (Plaquenil) 200 mg BID PO 11/22/16 21:00 11/23/16 09:28 (Catapres) 0.1 mg Q6H PRN PO 11/22/16 17:00 (Leda-Colace) 2 tab BID PO 11/23/16 10:00 (Lactulose Liq) 30 ml TID PRN PO 11/23/16 09:30 (Miralax) 17 gm DAILY PO 11/23/16 10:00 (Dulcolax Supp) 10 mg DAILY PRN IA 11/23/16 09:30 (Milk Of Magnesia Liq) 30 ml Q6H PRN PO 11/23/16 09:30 (Morphine Inj) 2 mg Q4H PRN IV PUSH 11/23/16 09:30 11/23/16 10:09 Urinary Catheter: No Vascular Central Line Catheter: No A/P Problem List: (1) Pelvic fracture ICD Code: S32.9XXA Status: Acute (2) CAD (coronary artery disease) ICD Code: I25.10 Status: Chronic Assessment and Plan 81-year-old female with PMH of CAD, lupus, HTN, hypothyroidism, and recent pelvic fracture. Patient was admitted to the chest pain center, evaluated by cardiology, had a negative stress test, cleared by cardiology. Admitted to medicine for inability to ambulate and pelvic pain. Intractable pain and inability to ambulate s/p recent "hairline" pelvic fracture : Outpatient imaging report reviewed: Left Hip AP and lateral 10/22/16 showed left hip joint with normal alignment, left femur appears intact, questionable lucency seen at the left inferior pubic rami, and fracture cannot be excluded. Pain control with oral and IV narcotics as needed. Scheduled Flexeril for muscle spasms. Heating pad. Continue PT, recommends rehab, patient agreeable, consulted case management. Fall precautions. Chest pain with history of CAD: Evaluated by cardiology and the chest pain center. Ruled out for ACS with normal troponins 3. Stress test with no reversible perfusion defect to indicate stress-induced myocardial ischemia. Continue carvedilol, atorvastatin, Plavix. Nitroglycerin as needed. Hypertension: Not optimally controlled. Patient's home BP meds were held last night, now restarted, expect improvement. Continue carvedilol, ramipril, furosemide. Clonidine as needed. Better controlled today. Other chronic medical conditions include lupus, hypothyroidism, depression: Stable at this time and will continue home medications as indicated. DVT prophylaxis: SCDs Written by Maryjane Jiang, acting as scribe for Dr. Bryant on 11/23/16 at 09:19. The documentation accurately reflects the work performed [id number] by me Dr. Bryant on 11/23/16 at 09:19. Discharge Planning Admit to inpatient for pelvic fracture, intractable pain, inability to ambulate , requiring IV narcotic pain medications. Case management to arrange SNF. Problem Qualifiers (1) Pelvic fracture: (2) CAD (coronary artery disease): Qualified Code: I25.118 - Coronary artery disease of [place] heart with stable angina pectoris, unspecified vessel or lesion type Maryjane Jiang PA-C Nov 23, 2016 09:19 Roseann Bryant MD Nov 23, 2016 18:39
[2016-11-23] MEDS: POTASSIUM CHLORIDE 10 MEQ CONTROLLED RELEASE TAB PO SCH (09:27)
[2016-11-23] MEDS: FUROSEMIDE 40 MG TAB PO SCH (09:27)
[2016-11-23] MEDS: AMITRIPTYLINE HCL 10 MG TAB PO SCH ×2 (09:28→21:46)
[2016-11-23] MEDS: CLOPIDOGREL 75 MG TAB PO SCH (09:28)
[2016-11-23] MEDS: CARVEDILOL 6.25 MG TAB PO SCH ×2 (09:28→21:45)
[2016-11-23] MEDS: HYDROXYCHLOROQUINE SULFATE 200 MG TAB PO SCH ×2 (09:28→21:46)
[2016-11-23] MEDS: RAMIPRIL 2.5 MG CAP PO SCH ×2 (09:29→21:46)
[2016-11-23] MEDS ORDERED: BISACODYL 10 MG SUPP PR PRN (09:30)
[2016-11-23] MEDS ORDERED: LACTULOSE SYRUP 20 GM/30 ML CUP PO PRN (09:30)
[2016-11-23] MEDS: LIPASE/PROTEASE/AMYLASE (6,000/19,000/30,000) CAP PO SCH ×3 (09:33→17:52)
[2016-11-23] MEDS: predniSONE 5 MG TAB PO SCH (09:39)
[2016-11-23] MEDS: SODIUM CHLORIDE 0.9% FLUSH 5 ML FLUSH IVF SCH ×2 (09:40→21:46)
[2016-11-23] MEDS ORDERED: MAGNESIUM HYDROXIDE SUSP 30 ML CUP PO ONE (10:00)
[2016-11-23] MEDS: MORPHINE SULFATE 4 MG/ML INJ IV PUSH PRN (10:09)
[2016-11-23] MEDS: DOCUSATE SODIUM 50 MG/SENNA 8.6 MG TAB PO SCH ×2 (11:46→21:45)
[2016-11-23] MEDS: POLYETHYLENE GLYCOL 17 GM PKG PO SCH (11:46)
[2016-11-23] MEDS: ATORVASTATIN 10 MG TAB PO SCH (21:45)
[2016-11-23] MEDS: MAGNESIUM HYDROXIDE SUSP 30 ML CUP PO PRN (21:45)
[2016-11-24] VITALS (9 sets, daily range): BP systolic 114–153; BP diastolic 57–102; PULSE 67–77; RESP 16–19; TEMP 96.4–98.4; O2SAT 93–99
[2016-11-24] MEDS: ACETAMINOPHEN/HYDROcodone 325 MG/7.5 MG TAB PO PRN ×3 (01:48→20:58)
[2016-11-24] MEDS: CYCLOBENZAPRINE HCL 10 MG TAB PO SCH ×3 (06:17→20:56)
[2016-11-24] MEDS: LEVOTHYROXINE SODIUM 150 MCG TAB PO SCH (06:17)
[2016-11-24] MEDS: RAMIPRIL 2.5 MG CAP PO SCH ×2 (08:41→20:56)
[2016-11-24] MEDS: LIPASE/PROTEASE/AMYLASE (6,000/19,000/30,000) CAP PO SCH ×3 (08:41→16:59)
[2016-11-24] MEDS: CARVEDILOL 6.25 MG TAB PO SCH ×2 (08:41→20:56)
[2016-11-24] MEDS: CLOPIDOGREL 75 MG TAB PO SCH (08:41)
[2016-11-24] MEDS: SODIUM CHLORIDE 0.9% FLUSH 5 ML FLUSH IVF SCH ×2 (08:41→20:57)
[2016-11-24] MEDS: FUROSEMIDE 40 MG TAB PO SCH (08:42)
[2016-11-24] MEDS: POTASSIUM CHLORIDE 10 MEQ CONTROLLED RELEASE TAB PO SCH (08:42)
[2016-11-24] MEDS: AMITRIPTYLINE HCL 10 MG TAB PO SCH ×2 (08:42→20:56)
[2016-11-24] MEDS: predniSONE 5 MG TAB PO SCH (08:42)
[2016-11-24] MEDS: POLYETHYLENE GLYCOL 17 GM PKG PO SCH (08:43)
[2016-11-24] MEDS: HYDROXYCHLOROQUINE SULFATE 200 MG TAB PO SCH ×2 (08:43→20:56)
[2016-11-24] MEDS: DOCUSATE SODIUM 50 MG/SENNA 8.6 MG TAB PO SCH ×2 (08:44→20:56)
--- NOTE | 2016-11-24 12:14 | HHI.PR ---
Subjective Remarks Says she fels better after pain meds and muscle relaxant. However she is not able to move her legs now 2/2 pain at this time. No n/v/d/c. Says pain is worse with movement. No fever or chills. No n/v/d/c. Objective Vitals Vital Signs Date Time Temp Pulse Resp B/P Pulse Ox O2 Delivery O2 Flow Rate FiO2 11/24/16 09:35 98 21 11/24/16 08:00 98.3 67 19 153/102 99 11/24/16 03:45 97.3 70 16 118/57 95 11/24/16 00:25 97.0 73 16 128/68 93 11/23/16 21:44 70 11/23/16 20:05 97.9 72 16 112/56 94 11/23/16 17:00 78 11/23/16 15:00 99.0 71 18 141/67 97 I/O 11/23/16 11/23/16 11/23/16 11/24/16 11/24/16 11/24/16 07:00 15:00 23:00 07:00 15:00 23:00 Intake Total 240 ml 480 ml Balance 240 ml 480 ml Intake Oral 240 ml 480 ml # Voids 5 3 # Bowel Movements 0 5 Result Diagram: 11/21/16219911/21/162199 Imaging Last Impressions Myocardial Perfusion Scan Nuc Med 11/22/16 0000 Signed Impressions: Service Date/Time: Tuesday, November 22, 2016 09:18 - CONCLUSION: No reversible perfusion defect to indicate stress-induced myocardial ischemia identified. RISK CATEGORY: Low (<1%% Annual Mortality Rate) Iraj Hughes MD Chest X-Ray 11/21/162153 Signed Impressions: Service Date/Time: October 22:03 - CONCLUSION: Lingular infiltrate Samy Lorenzana MD Objective Remarks GENERAL: Well-nourished, well-developed pleasant elderly female patient in [facility]. SKIN: Warm and dry. No rash. HEAD: Normocephalic. Atraumatic. NECK: Supple. Trachea midline. CARDIOVASCULAR: Regular rate and rhythm. S1, S2 noted. No murmur appreciated. RESPIRATORY: No accessory muscle use. Clear to auscultation. Breath sounds equal bilaterally. GASTROINTESTINAL: Abdomen soft, non-tender, nondistended. Normoactive bowel sounds x4. MUSCULOSKELETAL: No obvious deformities. Extremities without clubbing, cyanosis , or edema. Diffuse pelvic pain with ROM exercises and strength testing of b/l lower extremities. NEUROLOGICAL: Awake and alert. No obvious cranial nerve deficits. Motor grossly within normal limits. 5/5 muscle strength in bilateral upper and lower extremities. Normal speech. PSYCHIATRIC: Appropriate mood and affect; insight and judgment normal. A/P Problem List: (1) Pelvic fracture ICD Code: S32.9XXA Status: Acute (2) CAD (coronary artery disease) ICD Code: I25.10 Status: Chronic Assessment and Plan 81-year-old female with PMH of CAD, lupus, HTN, hypothyroidism, and recent pelvic fracture. Patient was admitted to the chest pain center, evaluated by cardiology, had a negative stress test, cleared by cardiology. Admitted to medicine for inability to ambulate and pelvic pain. Intractable pain and inability to ambulate s/p recent "hairline" pelvic fracture : Outpatient imaging report reviewed: Left Hip AP and lateral 10/22/16 showed left hip joint with normal alignment, left femur appears intact, questionable lucency seen at the left inferior pubic rami, and fracture cannot be excluded. Pain control with oral and IV narcotics as needed. Scheduled Flexeril for muscle spasms. Heating pad. Continue PT, recommends rehab, patient agreeable, consulted case management. Fall precautions. Pain meds IV and PO per pain scale. Chest pain with history of CAD: Evaluated by cardiology and the chest pain center. Ruled out for ACS with normal troponins 3. Stress test with no reversible perfusion defect to indicate stress-induced myocardial ischemia. Continue carvedilol, atorvastatin, Plavix. Nitroglycerin as needed. Hypertension: Not optimally controlled. Patient's home BP meds were held last night, now restarted, expect improvement. Continue carvedilol, ramipril, furosemide. Clonidine as needed. Better controlled today. Other chronic medical conditions include lupus, hypothyroidism, depression: Stable at this time and will continue home medications as indicated. DVT prophylaxis: SCDs Discussed with the patient, family at bedside, nurse. Problem Qualifiers (1) Pelvic fracture: (2) CAD (coronary artery disease): Qualified Code: I25.118 - Coronary artery disease of [place] heart with stable angina pectoris, unspecified vessel or lesion type Cosma,Roseann MD Nov 24, 2016 12:14
[2016-11-24] MEDS: MORPHINE SULFATE 4 MG/ML INJ IV PUSH PRN (12:17)
[2016-11-24] MEDS: ATORVASTATIN 10 MG TAB PO SCH (20:56)
[2016-11-25] MEDS: ACETAMINOPHEN/HYDROcodone 325 MG/7.5 MG TAB PO PRN ×5 (02:01→20:45)
[2016-11-25 03:35] VITALS: BP 159/75; PULSE 67; RESP 16; TEMP 96.2; O2SAT 97
[2016-11-25] MEDS: CYCLOBENZAPRINE HCL 10 MG TAB PO SCH ×3 (06:30→20:46)
[2016-11-25] MEDS: LEVOTHYROXINE SODIUM 150 MCG TAB PO SCH (06:30)
[2016-11-25 08:00] VITALS: BP 142/94; PULSE 66; RESP 16; TEMP 96; O2SAT 94
[2016-11-25] MEDS: HYDROXYCHLOROQUINE SULFATE 200 MG TAB PO SCH ×2 (08:50→20:46)
[2016-11-25] MEDS: predniSONE 5 MG TAB PO SCH (08:50)
[2016-11-25] MEDS: LIPASE/PROTEASE/AMYLASE (6,000/19,000/30,000) CAP PO SCH ×3 (08:50→16:48)
[2016-11-25] MEDS: DOCUSATE SODIUM 50 MG/SENNA 8.6 MG TAB PO SCH ×2 (08:51→20:45)
[2016-11-25] MEDS: FUROSEMIDE 40 MG TAB PO SCH (08:51)
[2016-11-25] MEDS: RAMIPRIL 2.5 MG CAP PO SCH ×2 (08:52→20:46)
[2016-11-25] MEDS: CLOPIDOGREL 75 MG TAB PO SCH (08:52)
[2016-11-25] MEDS: POTASSIUM CHLORIDE 10 MEQ CONTROLLED RELEASE TAB PO SCH (08:52)
[2016-11-25] MEDS: AMITRIPTYLINE HCL 10 MG TAB PO SCH ×2 (08:52→20:46)
[2016-11-25] MEDS: CARVEDILOL 6.25 MG TAB PO SCH ×2 (08:52→20:46)
[2016-11-25] MEDS: SODIUM CHLORIDE 0.9% FLUSH 5 ML FLUSH IVF SCH ×2 (08:54→20:46)
[2016-11-25] MEDS: POLYETHYLENE GLYCOL 17 GM PKG PO SCH (09:00)
[2016-11-25 11:30] VITALS: O2SAT 96
[2016-11-25 12:00] VITALS: BP 123/73; PULSE 68; RESP 14; TEMP 96; O2SAT 96
--- NOTE | 2016-11-25 13:02 | HHI.PR ---
Subjective Remarks Says she has less muscle spasm but still significant pain and she is not able to do much PT because of pain. Says she was up in the chair yesterday. No fever or chiuills. No new motor /sensory deficit. Objective Vitals Vital Signs Date Time Temp Pulse Resp B/P Pulse Ox O2 Delivery O2 Flow Rate FiO2 11/25/16 08:00 96.0 66 16 142/94 94 11/25/16 03:35 96.2 67 16 159/75 97 11/24/16 23:30 96.8 70 17 120/57 93 11/24/16 20:55 70 11/24/16 20:30 96.4 77 17 131/67 94 11/24/16 16:00 98.4 75 18 144/68 96 I/O 11/24/16 11/24/16 11/24/16 11/25/16 11/25/16 11/25/16 07:00 15:00 23:00 07:00 15:00 23:00 Intake Total 480 ml 960 ml 240 ml 480 ml Balance 480 ml 960 ml 240 ml 480 ml Intake Oral 480 ml 960 ml 240 ml 480 ml # Voids 3 8 4 3 # Bowel Movements 5 2 0 0 Result Diagram: 11/21/16219911/21/162199 Objective Remarks GENERAL: Well-nourished, well-developed pleasant elderly female patient in [facility]. SKIN: Warm and dry. No rash. HEAD: Normocephalic. Atraumatic. NECK: Supple. Trachea midline. CARDIOVASCULAR: Regular rate and rhythm. S1, S2 noted. No murmur appreciated. RESPIRATORY: No accessory muscle use. Clear to auscultation. Breath sounds equal bilaterally. GASTROINTESTINAL: Abdomen soft, non-tender, nondistended. Normoactive bowel sounds x4. MUSCULOSKELETAL: No obvious deformities. Extremities without clubbing, cyanosis , or edema. Diffuse pelvic pain with ROM exercises and strength testing of b/l lower extremities. NEUROLOGICAL: Awake and alert. No obvious cranial nerve deficits. Motor grossly within normal limits. 5/5 muscle strength in bilateral upper and lower extremities. Normal speech. PSYCHIATRIC: Appropriate mood and affect; insight and judgment normal. A/P Problem List: (1) Pelvic fracture ICD Code: S32.9XXA Status: Acute (2) CAD (coronary artery disease) ICD Code: I25.10 Status: Chronic Assessment and Plan 81-year-old female with PMH of CAD, lupus, HTN, hypothyroidism, and recent pelvic fracture. Patient was admitted to the chest pain center, evaluated by cardiology, had a negative stress test, cleared by cardiology. Admitted to medicine for inability to ambulate and pelvic pain. Intractable pain and inability to ambulate s/p recent "hairline" pelvic fracture : Outpatient imaging report reviewed: Left Hip AP and lateral 10/22/16 showed left hip joint with normal alignment, left femur appears intact, questionable lucency seen at the left inferior pubic rami, and fracture cannot be excluded. Pain control with oral and IV narcotics as needed. Scheduled Flexeril for muscle spasms. Heating pad. Continue PT, recommends rehab, patient agreeable, consulted case management. Fall precautions. Pain meds IV and PO per pain scale. Chest pain with history of CAD: Evaluated by cardiology and the chest pain center. Ruled out for ACS with normal troponins 3. Stress test with no reversible perfusion defect to indicate stress-induced myocardial ischemia. Continue carvedilol, atorvastatin, Plavix. Nitroglycerin as needed. Hypertension: Not optimally controlled. Patient's home BP meds were held last night, now restarted, expect improvement. Continue carvedilol, ramipril, furosemide. Clonidine as needed. Better controlled today. Other chronic medical conditions include lupus, hypothyroidism, depression: Stable at this time and will continue home medications as indicated. DVT prophylaxis: SCDs Discussed with the patient, family at bedside, nurse. Problem Qualifiers (1) Pelvic fracture: (2) CAD (coronary artery disease): Qualified Code: I25.118 - Coronary artery disease of [place] heart with stable angina pectoris, unspecified vessel or lesion type Roseann Bryant MD Nov 25, 2016 13:02
[2016-11-25 20:20] VITALS: BP 118/67; PULSE 78; RESP 18; TEMP 97.3; O2SAT 94
[2016-11-25] MEDS: ATORVASTATIN 10 MG TAB PO SCH (20:45)
--- NOTE | 2016-11-25 21:25 | RADRPT ---
EXAM DATE/TIME: 11/25/2016 20:29 [facility] COMPARISON: No previous studies available for comparison. INDICATIONS : Pelvic pain. MEDICAL HISTORY : Lupus. SURGICAL HISTORY : Appendectomy. Angioplasty. CABG. Hysterectomy. ENCOUNTER: Initial ACUITY: 1 day PAIN SCORE: 7/10 LOCATION: Bilateral pelvis FINDINGS: A single frontal view of the pelvis demonstrates osteopenia no acute fracture identified. 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 CONCLUSION: 1. Osteopenia. No acute fracture identified. Toy Sierra MD on November 25, 2016 at 21:18 Board Certified Radiologist. This report was verified electronically.
[2016-11-26] VITALS: BP 131/69; PULSE 66; RESP 18; TEMP 96.5; O2SAT 94
[2016-11-26] MEDS: ACETAMINOPHEN/HYDROcodone 325 MG/7.5 MG TAB PO PRN ×4 (00:49→20:57)
[2016-11-26 04:00] VITALS: BP 138/71; PULSE 71; RESP 18; TEMP 96.1; O2SAT 95
[2016-11-26] MEDS: CYCLOBENZAPRINE HCL 10 MG TAB PO SCH ×3 (06:32→21:38)
[2016-11-26] MEDS: LIPASE/PROTEASE/AMYLASE (6,000/19,000/30,000) CAP PO SCH ×3 (06:32→15:03)
[2016-11-26] MEDS: LEVOTHYROXINE SODIUM 150 MCG TAB PO SCH (06:32)
[2016-11-26 08:00] VITALS: BP 128/56; PULSE 82; RESP 18; TEMP 96.6; O2SAT 95
[2016-11-26] MEDS: CARVEDILOL 6.25 MG TAB PO SCH ×2 (09:00→20:56)
[2016-11-26] MEDS: MORPHINE SULFATE 4 MG/ML INJ IV PUSH PRN ×2 (09:18→15:03)
[2016-11-26] MEDS: POTASSIUM CHLORIDE 10 MEQ CONTROLLED RELEASE TAB PO SCH (09:18)
[2016-11-26] MEDS: CLOPIDOGREL 75 MG TAB PO SCH (09:19)
[2016-11-26] MEDS: AMITRIPTYLINE HCL 10 MG TAB PO SCH ×2 (09:19→20:56)
[2016-11-26] MEDS: HYDROXYCHLOROQUINE SULFATE 200 MG TAB PO SCH ×2 (09:19→20:56)
[2016-11-26] MEDS: DOCUSATE SODIUM 50 MG/SENNA 8.6 MG TAB PO SCH ×2 (09:19→20:56)
[2016-11-26] MEDS: RAMIPRIL 2.5 MG CAP PO SCH ×2 (09:20→20:56)
[2016-11-26] MEDS: SODIUM CHLORIDE 0.9% FLUSH 5 ML FLUSH IVF SCH ×2 (09:20→20:56)
[2016-11-26] MEDS: FUROSEMIDE 40 MG TAB PO SCH (09:20)
[2016-11-26] MEDS: predniSONE 5 MG TAB PO SCH (09:20)
[2016-11-26] MEDS: POLYETHYLENE GLYCOL 17 GM PKG PO SCH (09:20)
--- NOTE | 2016-11-26 10:42 | HHI.PR ---
Subjective Remarks Patient says she has less muscle spasm, however she has pain. Says her pain is in both legs but seems pain is worse on the right side and is difficult to move her right leg when she does PT. Positive straight leg test. Will do further imaging and ask neurology on consult. Objective Vitals Vital Signs Date Time Temp Pulse Resp B/P Pulse Ox O2 Delivery O2 Flow Rate FiO2 11/26/16 08:00 96.6 82 18 128/56 95 11/26/16 04:00 96.1 71 18 138/71 95 11/26/16 00:00 96.5 66 18 131/69 94 11/25/16 20:20 97.3 78 18 118/67 94 11/25/16 14:42 16 11/25/16 12:00 96.0 68 14 123/73 96 11/25/16 11:30 96 21 I/O 11/25/16 11/25/16 11/25/16 11/26/16 11/26/16 11/26/16 07:00 15:00 23:00 07:00 15:00 23:00 Intake Total 480 ml 240 ml 240 ml Balance 480 ml 240 ml 240 ml Intake Oral 480 ml 240 ml 240 ml # Voids 3 2 1 # Bowel Movements 0 0 0 Imaging Last Impressions Pelvis X-Ray 11/25/16 0000 Signed Impressions: Service Date/Time: Friday, November 25, 2016 20:29 - CONCLUSION: 1. Osteopenia. No acute fracture identified. Toy Sierra MD Myocardial Perfusion Scan Nuc Med 11/22/16 0000 Signed Impressions: Service Date/Time: Tuesday, November 22, 2016 09:18 - CONCLUSION: No reversible perfusion defect to indicate stress-induced myocardial ischemia identified. RISK CATEGORY: Low (<1%% Annual Mortality Rate) Iraj Hughes MD Chest X-Ray 11/21/16 2154 Signed Impressions: Service Date/Time: October 22:03 - CONCLUSION: Lingular infiltrate Samy Lorenzana MD Objective Remarks GENERAL: Well-nourished, well-developed pleasant elderly female patient in [facility]. SKIN: Warm and dry. No rash. HEAD: Normocephalic. Atraumatic. NECK: Supple. Trachea midline. CARDIOVASCULAR: Regular rate and rhythm. S1, S2 noted. No murmur appreciated. RESPIRATORY: No accessory muscle use. Clear to auscultation. Breath sounds equal bilaterally. GASTROINTESTINAL: Abdomen soft, non-tender, nondistended. Normoactive bowel sounds x4. MUSCULOSKELETAL: No obvious deformities. Extremities without clubbing, cyanosis , or edema. Diffuse pelvic pain with ROM exercises and strength testing of b/l lower extremities. NEUROLOGICAL: Awake and alert. No obvious cranial nerve deficits. Motor grossly within normal limits. 5/5 muscle strength in bilateral upper and lower extremities. Normal speech. Straight leg test is positive on the right side. PSYCHIATRIC: Appropriate mood and affect; insight and judgment normal. A/P Problem List: (1) Pelvic fracture ICD Code: S32.9XXA Status: Acute (2) CAD (coronary artery disease) ICD Code: I25.10 Status: Chronic Assessment and Plan 81-year-old female with PMH of CAD, lupus, HTN, hypothyroidism, and recent pelvic fracture. Patient was admitted to the chest pain center, evaluated by cardiology, had a negative stress test, cleared by cardiology. Admitted to medicine for inability to ambulate and pelvic pain. Intractable pain and inability to ambulate s/p recent "hairline" pelvic fracture : Outpatient imaging report reviewed: Left Hip AP and lateral 10/22/16 showed left hip joint with normal alignment, left femur appears intact, questionable lucency seen at the left inferior pubic rami, and fracture cannot be excluded. Pain control with oral and IV narcotics as needed. Scheduled Flexeril for muscle spasms. Heating pad. Continue PT, recommends rehab, patient agreeable, consulted case management. Fall precautions. Pain meds IV and PO per pain scale. X ray pelvis without fractures. Patient with more pain in her right leg and her back. Spasm improved. Positive straight leg test right. Will do further imaging and ask neurology on consult. Check MRI pelvis and lumbar spine. Chest pain with history of CAD: Evaluated by cardiology and the chest pain center. Ruled out for ACS with normal troponins 3. Stress test with no reversible perfusion defect to indicate stress-induced myocardial ischemia. Continue carvedilol, atorvastatin, Plavix. Nitroglycerin as needed. Hypertension: Not optimally controlled. Patient's home BP meds were held last night, now restarted, expect improvement. Continue carvedilol, ramipril, furosemide. Clonidine as needed. Better controlled today. Other chronic medical conditions include lupus, hypothyroidism, depression: Stable at this time and will continue home medications as indicated. DVT prophylaxis: SCDs Discussed with the patient, family at bedside, nurse. Problem Qualifiers (1) Pelvic fracture: (2) CAD (coronary artery disease): Qualified Code: I25.118 - Coronary artery disease of [place] heart with stable angina pectoris, unspecified vessel or lesion type Roseann Bryant MD Nov 26, 2016 10:42
[2016-11-26 12:00] VITALS: BP 130/63; PULSE 83; RESP 18; TEMP 98.5; O2SAT 93
--- NOTE | 2016-11-26 15:41 | RADRPT ---
EXAM DATE/TIME: 11/26/2016 14:01 [facility] COMPARISON: No previous studies available for comparison. INDICATIONS: Bilateral hip pain. MEDICAL HISTORY: Myocardial infarction. Hypertension. Chronic obstructive pulmonary disease. SURGICAL HISTORY: Appendectomy. CABG Hysterectomy. ENCOUNTER: Subsequent ACUITY: 2 day PAIN SCORE: 6/10 LOCATION: Bilateral hips. TECHNIQUE: Multiplanar, multisequence magnetic resonance imaging of the pelvis was performed without contrast. FINDINGS: There is abnormal areas of edema between the S1-S2 vertebral bodies, could be a nondisplaced fracture . There is also bony edema on each sides of the sacrum, could be an insufficiency fracture. There is abnormal edema in the superior pubic ramus on the left extending into the anterior column. Also there is abnormal signal within the inferior pubic ramus on the left. The areas of the inferior and superior pubic rami show definite marrow replacement. Certainly there could be acute fractures and the fact that they are in excellent position for routine fractures is comforting but it is diffic ult to rule out a malignancy with the amount of marrow replacement present. I would suggest conserva tive therapy and follow-up MRI in four months to be sure that the normal marrow signal returns. The rest of the visualized pelvis is unremarkable. The hips are unremarkable. Bladder is unremarkable. There is no bowel wall thickening. CONCLUSION: For the most part the areas of edema in both sacra ala and across S1-S2 and the superior and inferior pubic ramus on the left are all in excellent pattern for insufficiency fractures or traumatic pelvic fractures. However, there is definite marrow placement of the superior and inferior pubic rami frac tures. I would suggest a follow-up MRI in four months to be sure that they resolve. I do not see any lesions elsewhere to suggest metastatic disease. Conrado Cárdenas MD on November 26, 2016 at 15:22 Board Certified Radiologist. This report was verified electronically.
--- NOTE | 2016-11-26 15:58 | RADRPT ---
EXAM DATE/TIME: 11/26/2016 00:00 [facility] COMPARISON: No previous studies available for comparison. INDICATIONS : INABILITY TO AMBULATE TECHNIQUE: Four-cuff ankle and brachial pressures were obtained. Pulse cuff waveform tracings of the ankles were recorded, and ankle-brachial indices were calculated. PRESSURES (mmHg): Brachial (arm): Right 131 Ankle: Right 122 Left 114 JUICE: Right 0.93 Left 0.87 TBI: Right 0.74 Left 0.64 PULSED CUFF WAVEFORMS: Demonstrate normal amplitude bilaterally. CONCLUSION: 1. Findings moderate disease on the left and mild disease on the right. CT angiography of the abdomin al aorta and lower extremities is recommended for further evaluation if clinically indicated. Hilario Bah MD on November 26, 2016 at 15:56 Board Certified Radiologist. This report was verified electronically.
[2016-11-26 16:00] VITALS: BP 115/69; PULSE 88; RESP 18; TEMP 98.7; O2SAT 93
--- NOTE | 2016-11-26 16:57 | RADRPT ---
EXAM DATE/TIME: 11/26/2016 14:01 [facility] COMPARISON: No previous studies available for comparison. INDICATIONS : Back pain.. MEDICAL HISTORY: Hypertension. Chronic obstructive pulmonary disease. SURGICAL HISTORY: Hysterectomy. CABG Appendectomy. ENCOUNTER: Subsequent ACUITY: 2 day PAIN SCORE: 6/10 LOCATION: Back. TECHNIQUE: Multiplanar multisequence MRI of the lumbar spine was performed without contrast. FINDINGS: There is impressive bony edema between S1, S2 could be nondisplaced fracture. There is also bony oh ma in the abhinav-sacrum on the right. Differential also includes an insufficiency fracture. There is moderate intervertebral disc space narrowing from L4 to S1. There is some low grade edema a long the inferior end plate of L3 related to a Schmorl's node. T12-L1: The cord and thecal sac normal shape and diameter. Nerve roots exit without difficulty. L1-L2: Broad-based diffuse annular bulge. Nerve roots exit without difficult. The facet joints are well-aligned. Lateral recesses are patent. L2-L3: Broad-based diffuse annular bulge. There is mild flattening of the thecal sac. Nerve roots exit without difficulty. Facet joints well-aligned. L3-L4: There is a broad-based diffuse annular bulge. There is mild degenerative facet disease. The ezio sac is widely patent. L4-L5: Broad-based diffuse annular bulge. The bulge is slightly left greater than right abutting th e left L4 nerve root outside of the neural foramen. Correlate for a L4 radiculopathy. L5-S1: Unremarkable. CONCLUSION: Edema between S1-S2 suspicious for either a nondisplaced fracture or a stress fracture. Correlate cl inically for acute trauma. Broad-based bulge at the L4-5 level particularly prominent on the left side which abuts the left L4 n erve root. Large cyst upper pole left kidney. Conrado Cárdenas MD on November 26, 2016 at 14:33 Board Certified Radiologist. This report was verified electronically.
--- NOTE | 2016-11-26 19:24 | PD.CONS ---
History of Present Illness Service Neurology Consult Requested By medical Reason for Consult pain Primary Care Physician Michael Griffin MD History of Present Illness 81-year-old female that presents to the ED for evaluation of chest pain. seen by cardiology and assessed. has been having pain/spasms in her hip area bilateral x 2 months. seen by her pcp and has been receiving p.t and was tried on a muscle relaxant with limited relief. pain will sometimes radiate down the back of her legs. no sensory symptoms. has chronic bladder incontinence. no focal weakness. on chronic steroid tx for lupus. she has a caregiver and does not drive. PFSH Past Medical History Arthritis: Yes Autoimmune Disease: Yes (LUPUS) Blood Disorders: No Depression: Yes Cancer: No Cardiovascular Problems: Yes High Cholesterol: Yes Chemotherapy: No Chest Pain: Yes Congestive Heart Failure: Yes COPD: Yes Cerebrovascular Accident: No Coronary Artery Disease: Yes Diabetes: No Diminished Hearing: Yes Endocrine: Yes Gastrointestinal Disorders: No Genitourinary: Yes (stress incontinence) Hypertension: Yes Immune Disorder: Yes (lupus) Implanted Vascular Access Dvce: Yes Musculoskeletal: Yes Neurologic: No Psychiatric: Yes Reproductive: No Respiratory: Yes Immunizations Current: Yes Migraines: Yes Myocardial Infarction: Yes Radiation Therapy: No Thyroid Disease: Yes Tetanus Vaccination: < 5 Years Influenza Vaccination: Yes Menopausal: Yes Past Surgical History Abdominal Surgery: Yes (AORTA STENOSIS, 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) Appendectomy: Yes (1944) Body Medical Devices: DENTAL IMPLANTS Coronary Artery Bypass Graft: Yes (QUAD BYPASS 1999) Ear Surgery: Yes (BILAT CATATRACTS, MAC DEGENERATION BILAT) Gynecologic Surgery: Yes (HYSTERECTOMY) Hysterectomy: Yes (partial) Tonsillectomy: Yes (1936) Other Surgery: Yes (hysterectomy, appendectomy, CABG 4 vessel 1999) Social History Alcohol Use: No Tobacco Use: No (quit in 1992) Substance Use: No Allergies-Medications (Allergen,Severity, Reaction): Coded Allergies: Sulfa (Verified Allergy, Severe, Rash, 11/21/16) Codeine (Verified Adverse Reaction, Severe, VOMITING, 11/21/16) NAUSEA Reported Meds & Prescriptions Reported Meds & Active Scripts Review of Systems Except as stated in HPI: all other systems reviewed are Neg Review of Systems All other ROS: ROS reviewed as documented in chart Past Family Social History Allergies: Coded Allergies: Sulfa (Verified Allergy, Severe, Rash, 11/21/16) Codeine (Verified Adverse Reaction, Severe, VOMITING, 11/21/16) NAUSEA Active Ordered Medications Current Medications Medications (Trade) Dose Ordered Sig/Jeferson Route Start Time Stop Time Status Last Admin (NS Flush) 2 ml UNSCH PRN IVF 11/21/16 23:45 11/24/16 12:18 (NS Flush) 2 ml BID IVF 11/22/16 09:00 11/26/16 09:20 (Nitrostat Sl) 0.4 mg Q5M PRN SL 11/22/16 02:00 (Zofran Inj) 4 mg Q6H PRN IVP 11/22/16 12:15 (Tylenol) 650 mg Q6H PRN PO 11/22/16 12:15 (Brierfield 7.5-325 Mg) 1 tab Q4H PRN PO 11/22/16 12:15 11/26/16 11:43 (Narcan Inj) 0.4 mg UNSCH PRN IV 11/22/16 12:15 (Elavil) 10 mg BID PO 11/22/16 21:00 11/26/16 09:19 (Lipitor) 10 mg HS PO 11/22/16 21:00 11/25/16 20:45 (Coreg) 6.25 mg BID PO 11/22/16 13:00 11/25/16 20:46 (Plavix) 75 mg DAILY PO 11/22/16 13:00 11/26/16 09:19 (Lasix) 40 mg DAILY PO 11/22/16 13:00 11/26/16 09:20 (Synthroid) 150 mcg DAILY@06 PO 11/22/16 13:00 11/26/16 06:32 (KCl) 10 meq DAILY PO 11/23/16 09:00 11/26/16 09:18 (Deltasone) 5 mg DAILY PO 11/22/16 13:00 11/26/16 09:20 (Altace) 2.5 mg BID PO 11/22/16 13:00 11/26/16 09:20 (Flexeril) 5 mg Q8HR PO 11/22/16 15:00 11/26/16 11:42 (Brierfield 5-325 Mg) 2 tab Q6H PRN PO 11/22/16 15:00 (Creon 6--30) 1 cap TIDAC PO 11/22/16 17:00 11/26/16 15:03 (Plaquenil) 200 mg BID PO 11/22/16 21:00 11/26/16 09:19 (Catapres) 0.1 mg Q6H PRN PO 11/22/16 17:00 (Leda-Colace) 2 tab BID PO 11/23/16 10:00 11/26/16 09:19 (Lactulose Liq) 30 ml TID PRN PO 11/23/16 09:30 11/23/16 17:52 (Miralax) 17 gm DAILY PO 11/23/16 10:00 11/26/16 09:20 (Dulcolax Supp) [address] 11/23/16 09:30 (Milk Of Magnesia Liq) 30 ml Q6H PRN PO 11/23/16 09:30 11/23/16 21:45 (Morphine Inj) 2 mg Q4H PRN IV PUSH 11/23/16 09:30 11/26/16 15:03 (Tums Chew) 500 mg Q2H PRN CHEW 11/25/16 14:00 Exam I&O / VS 11/25/16 11/25/16 11/26/16 15:00 23:00 07:00 Intake Total 240 ml 240 ml Balance 240 ml 240 ml Intake Oral 240 ml 240 ml # Voids 2 1 # Bowel Movements 0 0 Vital Signs Date Time Temp Pulse Resp B/P Pulse Ox O2 Delivery O2 Flow Rate FiO2 11/26/16 16:00 98.7 88 18 115/69 93 11/26/16 12:00 98.5 83 18 130/63 93 11/26/16 08:00 96.6 82 18 128/56 95 11/26/16 04:00 96.1 71 18 138/71 95 11/26/16 00:00 96.5 66 18 131/69 94 11/25/16 20:20 97.3 78 18 118/67 94 General: Alert and Oriented, No acute distress Eye: EOMI Respiratory: Non-labored respirations Neurologic: Alert, Oriented Psychiatric: Cooperative, Appropriate mood & affect, Normal judgement Exam Comments ox 3, pleasant, follows, no aphasia, eomi, ou central cecal scotoma, ou 3-2mm, face sym, valiente to gravity, mild betian le paresis 5-/5 prox and 4+/5 distal dorsiflexion, discomfort with passive rom at either hip, slr raise negative betina , sensory nml to pin, no sensory level, msr 1+depressed, no clonus, planter flexor response Review/Management Diagnosis/Plan: (1) Pelvic fracture Plan: suspect pelvic fractures and s1,2 are causing her hip region pain with radiation mri lspine reviewed; no significant central canal stenosis recs pain control ortho eval, ? role for vertebroplasty vit d supplementation probable rehab (2) Renal insufficiency (3) Muscle strain (4) CAD (coronary artery disease) Problem Qualifiers (1) Pelvic fracture: (2) CAD (coronary artery disease): Qualified Code: I25.118 - Coronary artery disease of [place] heart with stable angina pectoris, unspecified vessel or lesion type Steve Nichole MD Nov 26, 2016 19:24
[2016-11-26 20:45] VITALS: BP 125/73; PULSE 91; RESP 17; TEMP 98.2; O2SAT 94
[2016-11-26] MEDS: ATORVASTATIN 10 MG TAB PO SCH (20:56)
--- NOTE | 2016-11-26 22:16 | PD.CONS ---
cc: Ventura Álvarez MD [facility] Service Orthopedic Surgeons Consult Requested By Dr. Nichole Reason for Consult Sacral fractures Primary Care Physician Michael Griffin MD Admission Diagnosis chest pain Diagnoses: (1) Bilateral sacral insufficiency fracture (2) Pubic ramus fracture (3) CAD (coronary artery disease) Chief Complaint: Posterior pelvic, buttock and upper posterior leg pain History of Present Illness This 81-year-old female has been treated for given ramus fractures over the past month. The patient states that with increased therapy she developed the onset of severe pain involving her posterior pelvic region, buttocks and legs. She got to the point where she is unable to ambulate. She was brought by ambulance to [facility] and admitted 5 days ago. She has a significant cardiac history and has been evaluated by cardiology. Because of persistent pain rating into her legs neurology consult was completed. Her workup has included a MRI scan of the lumbar spine and pelvis. This did reveal sacral insufficiency fractures bilaterally and the previously noted inferior and superior pubic ramus fractures. Orthopedic consultation was therefore requested. Patient states that her pain is somewhat improved since her hospitalization. She has less spasm. She still is limited in her mobility. Review of Systems 11 point review of systems completed and well outlined in the chart. Past Family Social History Past Medical History PFSH Past Medical History Arthritis: Yes Autoimmune Disease: Yes (LUPUS) Blood Disorders: No Depression: Yes Cancer: No Cardiovascular Problems: Yes High Cholesterol: Yes Chemotherapy: No Chest Pain: Yes Congestive Heart Failure: Yes COPD: Yes Cerebrovascular Accident: No Coronary Artery Disease: Yes Diabetes: No Diminished Hearing: Yes Endocrine: Yes Gastrointestinal Disorders: No Genitourinary: Yes (stress incontinence) Hypertension: Yes Immune Disorder: Yes (lupus) Implanted Vascular Access Dvce: Yes Musculoskeletal: Yes Neurologic: No Psychiatric: Yes Reproductive: No Respiratory: Yes Immunizations Current: Yes Migraines: Yes Myocardial Infarction: Yes Radiation Therapy: No Thyroid Disease: Yes Tetanus Vaccination: < 5 Years Influenza Vaccination: Yes Menopausal: Yes Past Surgical History Abdominal Surgery: Yes (AORTA STENOSIS, 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) Appendectomy: Yes (1944) Body Medical Devices: DENTAL IMPLANTS Coronary Artery Bypass Graft: Yes (QUAD BYPASS 1999) Ear Surgery: Yes (BILAT CATATRACTS, MAC DEGENERATION BILAT) Gynecologic Surgery: Yes (HYSTERECTOMY) Hysterectomy: Yes (partial) Tonsillectomy: Yes (193) Other Surgery: Yes (hysterectomy, appendectomy, CABG 4 vessel 1999) Social History Alcohol Use: No Tobacco Use: No (quit in 1992) Substance Use: No Allergies-Medications (Allergen,Severity, Reaction): Coded Allergies: Sulfa (Verified Allergy, Severe, Rash, 11/21/16) Codeine (Verified Adverse Reaction, Severe, VOMITING, 11/21/16) NAUSEA Reported Meds & Prescriptions Reported Meds & Active Scripts Allergies: Coded Allergies: Sulfa (Verified Allergy, Severe, Rash, 11/21/16) Codeine (Verified Adverse Reaction, Severe, VOMITING, 11/21/16) NAUSEA Active Ordered Medications Current Medications Medications (Trade) Dose Ordered Sig/Jeferson Route Start Time Stop Time Status Last Admin (NS Flush) 2 ml UNSCH PRN IVF 11/21/16 23:45 11/24/16 12:18 (NS Flush) 2 ml BID IVF 11/22/16 09:00 11/26/16 20:56 (Nitrostat Sl) 0.4 mg Q5M PRN SL 11/22/16 02:00 (Zofran Inj) 4 mg Q6H PRN IVP 11/22/16 12:15 (Tylenol) 650 mg Q6H PRN PO 11/22/16 12:15 ([place] 7.5-325 Mg) 1 tab Q4H PRN PO 11/22/16 12:15 11/26/16 20:57 (Narcan Inj) 0.4 mg UNSCH PRN IV 11/22/16 12:15 (Elavil) 10 mg BID PO 11/22/16 21:00 11/26/16 20:56 (Lipitor) 10 mg HS PO 11/22/16 21:00 11/26/16 20:56 (Coreg) 6.25 mg BID PO 11/22/16 13:00 11/26/16 20:56 (Plavix) 75 mg DAILY PO 11/22/16 13:00 11/26/16 09:19 (Lasix) 40 mg DAILY PO 11/22/16 13:00 11/26/16 09:20 (Synthroid) 150 mcg DAILY@06 PO 11/22/16 13:00 11/26/16 06:32 (KCl) 10 meq DAILY PO 11/23/16 09:00 11/26/16 09:18 (Deltasone) 5 mg DAILY PO 11/22/16 13:00 11/26/16 09:20 (Altace) 2.5 mg BID PO 11/22/16 13:00 11/26/16 20:56 (Flexeril) 5 mg Q8HR PO 11/22/16 15:00 11/26/16 21:38 ([place] 5-325 Mg) 2 tab Q6H PRN PO 11/22/16 15:00 (Creon 30) 1 cap TIDAC PO 11/22/16 17:00 11/26/16 15:03 (Plaquenil) 200 mg BID PO 11/22/16 21:00 11/26/16 20:56 (Catapres) 0.1 mg Q6H PRN PO 11/22/16 17:00 (Leda-Colace) 2 tab BID PO 11/23/16 10:00 11/26/16 20:56 (Lactulose Liq) 30 ml TID PRN PO 11/23/16 09:30 11/23/16 17:52 (Miralax) 17 gm DAILY PO 11/23/16 10:00 11/26/16 09:20 (Dulcolax Supp) 10 mg DAILY PRN [place] 11/23/16 09:30 (Milk Of Magnesia Liq) 30 ml Q6H PRN PO 11/23/16 09:30 11/23/16 21:45 (Morphine Inj) 2 mg Q4H PRN IV PUSH 11/23/16 09:30 11/26/16 15:03 (Tums Chew) 500 mg Q2H PRN CHEW 11/25/16 14:00 Reported Meds & Active Scripts Active Reported Lortab (Hydrocodone-Acetaminophen) 7.5-325 Mg Tab 1 Tab PO TID Tramadol (Tramadol HCl) 50 Mg Tab 100 Mg PO TID PRN K-Tab (Potassium Chloride) 10 Meq Tab 10 Meq PO DAILY Methotrexate 2.5 Mg Tab 10 Mg PO Q7D ON WEDNESDAYS Plaquenil (Hydroxychloroquine Sulfate) 200 Mg Tab 200 Mg PO BID Take with food Lasix (Furosemide) 40 Mg Tab 40 Mg PO DAILY Folate (Folic Acid) 1 Mg Tab 1 Mg PO DAILY EXCEPT ON FRI Atorvastatin (Atorvastatin Calcium) 10 Mg Tab 10 Mg PO HS Amitriptyline (Amitriptyline HCl) 10 Mg Tab 10 Mg PO BID Ramipril 2.5 Mg Cap 2.5 Mg PO BID Carvedilol 6.25 Mg Tab 6.25 Mg PO BID Prednisone 5 Mg Tab 5 Mg PO DAILY Clopidogrel (Clopidogrel Bisulfate) 75 Mg Tab 75 Mg PO DAILY Levothyroxine (Levothyroxine Sodium) 150 Mcg Tab 150 Mcg PO DAILY Creon (Amylase/Lipase/Protease) 6,000-19,000-30,000 Units Cap 1 Cap PO WITH EACH MEAL Physical Exam Vital Signs Vital Signs Date Time Temp Pulse Resp B/P Pulse Ox O2 Delivery O2 Flow Rate FiO2 11/26/16 20:45 98.2 91 17 125/73 94 11/26/16 16:00 98.7 88 18 115/69 93 11/26/16 12:00 98.5 83 18 130/63 93 11/26/16 08:00 96.6 82 18 128/56 95 11/26/16 04:00 96.1 71 18 138/71 95 11/26/16 00:00 96.5 66 18 131/69 94 Physical Exam The patient is awake and alert and answers questions appropriately. She is in no acute distress. She moves both upper extremities without pain or restriction. She has some difficulty moving her bilateral lower extremities. She has no pain in the leg or groin region with passive range of motion of the hips. She is able to do a straight leg raise. She moves her toes and ankle freely and has good capillary refill and sensation distally. Her examination is otherwise somewhat limited secondary to discomfort in the posterior pelvic and buttock region. Laboratory Laboratory Tests Test 11/26/16 20:44 Erythrocyte Sedimentation Rate 57 Imaging Last 72 hours Impressions Pelvis MRI 11/26/16 0000 Signed Impressions: Service Date/Time: Saturday, November 26, 2016 14:01 - CONCLUSION: For the most part the areas of edema in both sacra ala and across S1-S2 and the superior and inferior pubic ramus on the left are all in excellent pattern for insufficiency fractures or traumatic pelvic fractures. However, there is definite marrow placement of the superior and inferior pubic rami fractures. I would suggest a follow-up MRI in four months to be sure that they resolve. I do not see any lesions elsewhere to suggest metastatic disease. Conrado Cárdenas MD Lumbar Spine MRI 11/26/16 0000 Signed Impressions: Service Date/Time: Saturday, November 26, 2016 14:01 - CONCLUSION: Edema between S1-S2 suspicious for either a nondisplaced fracture or a stress fracture. Correlate clinically for acute trauma. Broad-based bulge at the L4-5 level particularly prominent on the left side which abuts the left L4 nerve root. Large cyst upper pole left kidney. Conrado Cárdenas MD Pelvis X-Ray 11/25/16 0000 Signed Impressions: Service Date/Time: Friday, November 25, 2016 20:29 - CONCLUSION: 1. Osteopenia. No acute fracture identified. Toy Sierra MD Assessment & Plan Problem List: (1) Bilateral sacral insufficiency fracture (2) Pubic ramus fracture (3) Renal insufficiency (4) CAD (coronary artery disease) Assessment and Plan The findings and alternatives of treatment were discussed. The patient has a healing pubic ramus fractures and sacral insufficiency fractures. These are nonoperative problems and no other orthopedic intervention required at present. Recommendation given for analgesic control and mobilization to tolerance. She would benefit from rehabilitation placement. She can be discharged from an orthopedic standpoint. She currently is having physical therapy which can progress to tolerance. Ventura Álvarez MD Nov 26, 2016 22:16
[2016-11-27] MEDS: CALCIUM CARBONATE 500 MG CHEWABLE TAB CHEW PRN ×2 (00:10→10:23)
[2016-11-27 00:40] VITALS: BP 104/63; PULSE 73; RESP 17; TEMP 96.6; O2SAT 93
[2016-11-27] MEDS: ACETAMINOPHEN/HYDROcodone 325 MG/7.5 MG TAB PO PRN ×4 (01:53→15:09)
[2016-11-27 04:32] VITALS: BP 151/74; PULSE 76; RESP 16; TEMP 95.5; O2SAT 93
[2016-11-27] MEDS: CYCLOBENZAPRINE HCL 10 MG TAB PO SCH ×2 (05:30→13:30)
[2016-11-27] MEDS: MAGNESIUM HYDROXIDE SUSP 30 ML CUP PO PRN (05:30)
[2016-11-27] MEDS: LEVOTHYROXINE SODIUM 150 MCG TAB PO SCH (05:30)
[2016-11-27 07:15] VITALS: PULSE 83
--- NOTE | 2016-11-27 07:43 | HHI.PR ---
Review/Management Diagnosis/Plan: (1) Pelvic fracture Plan: suspect pelvic fractures and s1,2 are causing her hip region pain with radiation mri lspine reviewed; no significant central canal stenosis recs exam stable pain control ortho eval, ? role for vertebroplasty- seen by ortho. vit d supplementation rehab planning (2) Renal insufficiency (3) Muscle strain (4) CAD (coronary artery disease) Subjective Subjective Comments No acute events reported No headache No chest pain No dyspnea Active Medications Current Medications Medications (Trade) Dose Ordered Sig/Jeferson Route Start Time Stop Time Status Last Admin (NS Flush) 2 ml UNSCH PRN IVF 11/21/16 23:45 11/24/16 12:18 (NS Flush) 2 ml BID IVF 11/22/16 09:00 11/26/16 20:56 (Nitrostat Sl) 0.4 mg Q5M PRN SL 11/22/16 02:00 (Zofran Inj) 4 mg Q6H PRN IVP 11/22/16 12:15 (Tylenol) 650 mg Q6H PRN PO 11/22/16 12:15 ([place] 7.5-325 Mg) 1 tab Q4H PRN PO 11/22/16 12:15 11/27/16 05:31 (Narcan Inj) 0.4 mg UNSCH PRN IV 11/22/16 12:15 (Elavil) 10 mg BID PO 11/22/16 21:00 11/26/16 20:56 (Lipitor) 10 mg HS PO 11/22/16 21:00 11/26/16 20:56 (Coreg) 6.25 mg BID PO 11/22/16 13:00 11/26/16 20:56 (Plavix) 75 mg DAILY PO 11/22/16 13:00 11/26/16 09:19 (Lasix) 40 mg DAILY PO 11/22/16 13:00 11/26/16 09:20 (Synthroid) 150 mcg DAILY@06 PO 11/22/16 13:00 11/27/16 05:30 (KCl) 10 meq DAILY PO 11/23/16 09:00 11/26/16 09:18 (Deltasone) 5 mg DAILY PO 11/22/16 13:00 11/26/16 09:20 (Altace) 2.5 mg BID PO 11/22/16 13:00 11/26/16 20:56 (Flexeril) 5 mg Q8HR PO 11/22/16 15:00 11/27/16 05:30 ([place] 5-325 Mg) 2 tab Q6H PRN PO 11/22/16 15:00 (Creon 6-19-30) 1 cap TIDAC PO 11/22/16 17:00 11/26/16 15:03 (Plaquenil) 200 mg BID PO 11/22/16 21:00 11/26/16 20:56 (Catapres) 0.1 mg Q6H PRN PO 11/22/16 17:00 (Leda-Colace) 2 tab BID PO 11/23/16 10:00 11/26/16 20:56 (Lactulose Liq) 30 ml TID PRN PO 11/23/16 09:30 11/23/16 17:52 (Miralax) 17 gm DAILY PO 11/23/16 10:00 11/26/16 09:20 (Dulcolax Supp) 10 mg DAILY PRN [place] 11/23/16 09:30 (Milk Of Magnesia Liq) 30 ml Q6H PRN PO 11/23/16 09:30 11/27/16 05:30 (Morphine Inj) 2 mg Q4H PRN IV PUSH 11/23/16 09:30 11/26/16 15:03 (Tums Chew) 500 mg Q2H PRN CHEW 11/25/16 14:00 11/27/16 00:10 Allergies Allergies Coded Allergies Sulfa (Verified Allergy, Severe, Rash, 11/21/16) Codeine (Verified Adverse Reaction, Severe, VOMITING, 11/21/16) Review of Systems All other ROS: ROS reviewed as documented in chart Exam I&O / VS 11/26/16 11/26/16 11/27/16 14:59 22:59 06:59 Intake Total 480 ml 240 ml Balance 480 ml 240 ml Intake Oral 480 ml 240 ml # Voids 3 2 # Bowel Movements 0 0 Vital Signs Date Time Temp Pulse Resp B/P Pulse Ox O2 Delivery O2 Flow Rate FiO2 11/27/16 04:32 95.5 76 16 151/74 93 11/27/16 00:40 96.6 73 17 104/63 93 11/26/16 20:45 98.2 91 17 125/73 94 11/26/16 16:00 98.7 88 18 115/69 93 11/26/16 12:00 98.5 83 18 130/63 93 11/26/16 08:00 96.6 82 18 128/56 95 General: Alert and Oriented, No acute distress Eye: EOMI Respiratory: Non-labored respirations Neurologic: Alert, Oriented Psychiatric: Cooperative, Appropriate mood & affect, Normal judgement Exam Comments ox 3, pleasant, follows, no aphasia, eomi, ou central cecal scotoma, ou 3-2mm, face sym, valiente to gravity, mild betina le paresis 5-/5 prox and 4+/5 distal dorsiflexion, discomfort with passive rom at either hip, sensory nml to pin, no sensory level, msr 1+depressed, no clonus, planter flexor response Objective Micro and Labs Laboratory Tests Test 11/26/16 20:44 Erythrocyte Sedimentation Rate 57 C-Reactive Protein 2.10 Vitamin B12 Level 664 Problem Qualifiers (1) Pelvic fracture: (2) CAD (coronary artery disease): Qualified Code: I25.118 - Coronary artery disease of [place] heart with stable angina pectoris, unspecified vessel or lesion type Steve Nichole MD Nov 27, 2016 07:43
[2016-11-27 08:00] VITALS: BP 117/72; PULSE 83; RESP 16; TEMP 97.3; O2SAT 95
[2016-11-27] MEDS: LIPASE/PROTEASE/AMYLASE (6,000/19,000/30,000) CAP PO SCH ×2 (10:24→13:32)
[2016-11-27] MEDS: RAMIPRIL 2.5 MG CAP PO SCH (10:24)
[2016-11-27] MEDS: POTASSIUM CHLORIDE 10 MEQ CONTROLLED RELEASE TAB PO SCH (10:24)
[2016-11-27] MEDS: FUROSEMIDE 40 MG TAB PO SCH (10:25)
[2016-11-27] MEDS: predniSONE 5 MG TAB PO SCH (10:25)
[2016-11-27] MEDS: CLOPIDOGREL 75 MG TAB PO SCH (10:25)
[2016-11-27] MEDS: HYDROXYCHLOROQUINE SULFATE 200 MG TAB PO SCH (10:25)
[2016-11-27] MEDS: DOCUSATE SODIUM 50 MG/SENNA 8.6 MG TAB PO SCH (10:25)
[2016-11-27] MEDS: AMITRIPTYLINE HCL 10 MG TAB PO SCH (10:26)
[2016-11-27] MEDS: CARVEDILOL 6.25 MG TAB PO SCH (10:26)
[2016-11-27] MEDS: POLYETHYLENE GLYCOL 17 GM PKG PO SCH (10:27)
[2016-11-27] MEDS: SODIUM CHLORIDE 0.9% FLUSH 5 ML FLUSH IVF SCH (10:46)
[2016-11-27 12:00] VITALS: BP 149/80; PULSE 92; RESP 17; TEMP 98.5; O2SAT 93
[2016-11-27] MEDS ORDERED: NORC5TAB PO (12:53)
[2016-11-27] MEDS ORDERED: DOCU8.6T PO (12:53)
[2016-11-27] MEDS ORDERED: CYCL5TAB PO (12:53)
--- NOTE | 2016-11-27 12:53 | HHI.DS ---
Discharge Summary Admission Date Nov 23, 2016 at 09:26 Discharge Date: Nov 27, 2016 Admitting Diagnosis chest pain (1) Bilateral sacral insufficiency fracture ICD Code: M84.48XA (2) Pubic ramus fracture ICD Code: S32.599A (3) CAD (coronary artery disease) ICD Code: I25.10 Procedures none Brief History - From Admission This is an 81-year-old female who presented to the ED complaining of her left hip bothering her. The patient states she had a fracture within her pelvis somewhat recently and had been going through therapy. She states on Friday her therapy sessions intensified quite a bit and really bothered her in her hip area. She states for the last two days she has been unable to walk secondary to the pain. She states that last evening the discomfort in her hip was so intense with cramping that she thinks it caused her to have discomfort in her chest. She describes it as a heaviness in her chest lasting five minutes. She states she should three nitroglycerin rather rapidly for it. She does have a history of heart disease and had a bypass 20 years ago. She does not really remember what those symptoms were. She continues to follow with cardiology and follows with Dr. Yeung. She believes the last stress test would have been a few years ago at least, believes it was normal at the time. Currently denies any chest comfort. She states she is still not able to ambulate well. Significant Findings Laboratory Tests Test 11/26/16 20:44 Erythrocyte Sedimentation Rate 57 mm/hr (0-30) C-Reactive Protein 2.10 MG/DL (0.00-0.30) Imaging Last Impressions Pelvis MRI 11/26/16 0000 Signed Impressions: Service Date/Time: Saturday, November 26, 2016 14:01 - CONCLUSION: For the most part the areas of edema in both sacra ala and across S1-S2 and the superior and inferior pubic ramus on the left are all in excellent pattern for insufficiency fractures or traumatic pelvic fractures. However, there is definite marrow placement of the superior and inferior pubic rami fractures. I would suggest a follow-up MRI in four months to be sure that they resolve. I do not see any lesions elsewhere to suggest metastatic disease. Conrado Cárdenas MD Lumbar Spine MRI 11/26/16 0000 Signed Impressions: Service Date/Time: Saturday, November 26, 2016 14:01 - CONCLUSION: Edema between S1-S2 suspicious for either a nondisplaced fracture or a stress fracture. Correlate clinically for acute trauma. Broad-based bulge at the L4-5 level particularly prominent on the left side which abuts the left L4 nerve root. Large cyst upper pole left kidney. Conrado Cárdenas MD Pelvis X-Ray 11/25/16 0000 Signed Impressions: Service Date/Time: Friday, November 25, 2016 20:29 - CONCLUSION: 1. Osteopenia. No acute fracture identified. Toy Sierra MD Myocardial Perfusion Scan Nuc Med 11/22/16 0000 Signed Impressions: Service Date/Time: Tuesday, November 22, 2016 09:18 - CONCLUSION: No reversible perfusion defect to indicate stress-induced myocardial ischemia identified. RISK CATEGORY: Low (<1%% Annual Mortality Rate) Iraj Hughes MD Chest X-Ray 11/21/16 2154 Signed Impressions: Service Date/Time: October 22:03 - CONCLUSION: Lingular infiltrate Samy Lorenzana MD PE at Discharge GENERAL: Well-nourished, well-developed pleasant elderly female patient in [facility]. SKIN: Warm and dry. No rash. HEAD: Normocephalic. Atraumatic. NECK: Supple. Trachea midline. CARDIOVASCULAR: Regular rate and rhythm. S1, S2 noted. No murmur appreciated. RESPIRATORY: No accessory muscle use. Clear to auscultation. Breath sounds equal bilaterally. GASTROINTESTINAL: Abdomen soft, non-tender, nondistended. Normoactive bowel sounds x4. MUSCULOSKELETAL: No obvious deformities. Extremities without clubbing, cyanosis , or edema. Diffuse pelvic pain with ROM exercises and strength testing of b/l lower extremities. NEUROLOGICAL: Awake and alert. No obvious cranial nerve deficits. Motor grossly within normal limits. 5/5 muscle strength in bilateral upper and lower extremities. Normal speech. Straight leg test is positive on the right side. PSYCHIATRIC: Appropriate mood and affect; insight and judgment normal. Pt update on day of discharge Says pain is controlled by meds. No neuro deficit. Denies n/v/d/c. Hospital Course 81-year-old female with PMH of CAD, lupus, HTN, hypothyroidism, and recent pelvic fracture. Patient was admitted to the chest pain center, evaluated by cardiology, had a negative stress test, cleared by cardiology. Admitted to medicine for inability to ambulate and pelvic pain. Intractable pain and inability to ambulate s/p recent "hairline" pelvic fracture : Outpatient imaging report reviewed: Left Hip AP and lateral 10/22/16 showed left hip joint with normal alignment, left femur appears intact, questionable lucency seen at the left inferior pubic rami, and fracture cannot be excluded. Pain control with oral and IV narcotics as needed. Scheduled Flexeril for muscle spasms. Heating pad. Continue PT, recommends rehab, patient agreeable, consulted case management. Fall precautions. Pain meds IV and PO per pain scale. X ray pelvis without fractures. Patient with more pain in her right leg and her back. Spasm improved. Positive straight leg test right. Will do further imaging and ask neurology on consult. MRI pelvis and lumbar spine reviewed as above. Patient with pelvic fracture. Seen by neurology and ortho, recommends medical management. Chest pain with history of CAD: Evaluated by cardiology and the chest pain center. Ruled out for ACS with normal troponins 3. Stress test with no reversible perfusion defect to indicate stress-induced myocardial ischemia. Continue carvedilol, atorvastatin, Plavix. Nitroglycerin as needed. Hypertension: Not optimally controlled. Patient's home BP meds were held last night, now restarted, expect improvement. Continue carvedilol, ramipril, furosemide. Clonidine as needed. Better controlled today. Other chronic medical conditions include lupus, hypothyroidism, depression: Stable at this time and will continue home medications as indicated. DVT prophylaxis: SCDs Improved, cleared by consultants for DC . To follow up as OP with PCP and consultants. Pt Condition on Discharge: Fair Discharge Disposition: Discharge to SNF Discharge Time: > 30 minutes Discharge Instructions DIET: Follow Instructions for: Heart Healthy Diet Activities you can perform: Regular-No Restrictions Follow up Referrals: PCP Follow-up - 3-5 Days New Medications: Cholecalciferol (Vitamin D-3) 1,000 Unit Tab 1000 UNITS PO DAILY vit D supplem #30 Ref 0 TAB Cyclobenzaprine (Flexeril) 5 Mg Tab 5 MG PO TID Muscle Spasm #90 Ref 0 TAB Hydrocodone-Acetaminophen (Mobile) 5-325 mg Tab 1 TAB PO Q4H PRN PAIN #30 Ref 0 TAB Sennosides-Docusate Sodium (Docusate Sodium-Senna) 8.6-50 Mg Tab 2 TAB PO HS Prevent Constipation #60 Ref 0 TAB Continued Medications: Amitriptyline (Amitriptyline) 10 Mg Tab 10 MG PO BID TAB Atorvastatin (Atorvastatin) 10 Mg Tab 10 MG PO HS Cholesterol Management #30 Ref 0 TAB Carvedilol (Carvedilol) 6.25 Mg Tab 6.25 MG PO BID #60 Ref 0 TAB Clopidogrel (Clopidogrel) 75 Mg Tab 75 MG PO DAILY Blood Clot Prevention #30 Ref 0 TAB Folic Acid (Folate) 1 Mg Tab 1 MG PO DAILY EXCEPT ON FRI Nutritional Supplement Ref 0 TAB Furosemide (Lasix) 40 Mg Tab 40 MG PO DAILY #30 Ref 0 TAB Hydrocodone-Acetaminophen (Lortab) 7.5-325 Mg Tab 1 TAB PO TID PAIN Ref 0 TAB Hydroxychloroquine (Plaquenil) 200 Mg Tab 200 MG PO BID Take with food #60 Ref 0 TAB Levothyroxine (Levothyroxine) 150 Mcg Tab 150 MCG PO DAILY Thyroid #30 Ref 0 TAB Methotrexate (Methotrexate) 2.5 Mg Tab 10 MG PO Q7D ON WEDNESDAYS Ref 0 TAB Pancrelipase (Creon) 6,000-19,000-30,000 Units Cap 1 CAP PO WITH EACH MEAL Digestive Aid #90 Ref 0 CAP Potassium Chloride ER (K-Tab) 10 Meq Tab 10 MEQ PO DAILY Electrolyte Replacement #30 Ref 0 TAB Prednisone (Prednisone) 5 Mg Tab 5 MG PO DAILY Ref 0 TAB Ramipril (Ramipril) 2.5 Mg Cap 2.5 MG PO BID #60 Ref 0 CAP Tramadol (Tramadol) 50 Mg Tab 100 MG PO TID PRN PAIN Ref 0 TAB Roseann Bryant MD Nov 27, 2016 12:53
--- NOTE | 2016-11-27 12:53 | HHI.DCPOC ---
Discharge Care Plan Goals to Promote Your Health * To prevent worsening of your condition and complications * To maintain your health at the optimal level Directions to Meet Your Goals Take your medications as prescribed Follow your dietary instruction Follow activity as directed Keep your appointments as scheduled Take your immunizations and boosters as scheduled If your symptoms worsen call your PCP, if no PCP go to Urgent Care Center or Emergency Room Smoking is Dangerous to Your Health. Avoid second hand smoke Call the 24-hour hour crisis hotline for domestic abuse at Roseann Bryant MD Nov 27, 2016 12:53
[2016-11-27] MEDS ORDERED: VITA10003 PO (12:56)
== END 2016-11-27 17:05 | DRG 544 ==
LOC: NEPE 21:35 → NEDA 22:51 → NEPHCDU 11-22 01:04 → OBSVTOIN 11-23 09:26 → N06B 11-23 15:36
PROVIDERS: ADMIT Hospitalist; ATTEND Hospitalist
DX: M84.48XA Pathological fracture, other site, initial encounter for fracture (principal); M32.9 Systemic lupus erythematosus, unspecified; J44.9 Chronic obstructive pulmonary disease, unspecified; Z95.1 Presence of aortocoronary bypass graft; I10 Essential (primary) hypertension; S32.592D Other specified fracture of left pubis, subsequent encounter for fracture with routine healing; R26.2 Difficulty in walking, not elsewhere classified; I25.118 Atherosclerotic heart disease of native coronary artery with other forms of angina pectoris; R07.89 Other chest pain; F32.9 Major depressive disorder, single episode, unspecified; N28.9 Disorder of kidney and ureter, unspecified; I25.2 Old myocardial infarction; E03.9 Hypothyroidism, unspecified; K59.00 Constipation, unspecified; E78.00 Pure hypercholesterolemia, unspecified; Z79.52 Long term (current) use of systemic steroids; Z88.2 Allergy status to sulfonamides; Z88.5 Allergy status to narcotic agent
CPT/HCPCS: 71010; 72148; 72170; 72195; 78452; 80048; 82550; 82607; 83735; 83880; 84484; 85025; 85610; 85652; 85730; 86140; 93005; 93017; 93922; 99283; A9502; G0378; G8987-GP; G8988-GP; J2270; J2785; J7512

== ENCOUNTER → 2017-02-06 | Outpatient (CLI) | payer MEDICARE, OTHER ==
[~2017-02-06] MED LIST changes: -AMIT10 PO; -ATOR10 PO; +ATOR10TA15 PO; -CARV6.25 PO; +CYCL5TAB PO; +DOCU8.6T PO; -FOLI1 PO; +FOLI1TAB4 PO; +FURO1TAB60 PO; -FURO20 PO; +HYDR-3534 PO; -HYDR200T3 PO; +K-TA10TA PO; -LEVO50IN PO; -LORA0.5T PO; -METH2.5 PO; +METH2.5T PO; -NITR0.4S SL; +NORC5TAB PO; +PLAQ200T PO; -PLAV75TA PO; -POTA10IN2 PO; -PRED5SOL PO; -RAMI2.5C29 PO; -ULTR50TA PO; +VITA10003 PO
[2017-02-06 09:27] LABS: HEMATOCRIT 34.3 % (35.0-46.0); MEAN CELL VOLUME 92.2 FL (80.0-100.0); MEAN CORPUSCULAR HEMOGLOBIN 30.8 PG (27.0-34.0); MEAN CORPUSCULAR HGB CONC 33.4 % (32.0-36.0); PLATELET COUNT 265 TH/MM3 (150-450); RED BLOOD COUNT 3.73 MIL/MM3 (4.00-5.30); RED CELL DISTRIBUTION WIDTH 16.3 % (11.6-17.2); REVIEW FLAG FINAL; WHITE BLOOD COUNT 5.7 TH/MM3 (4.0-11.0)
[2017-02-06 10:03] LABS: ALKALINE PHOSPHATASE 172 U/L (45-117); ALT (GPT) 36 U/L (10-53); ANION GAP 2 MEQ/L (5-15); AST (GOT) 28 U/L (15-37); BICARBONATE 34.2 MEQ/L (21.0-32.0); BLOOD UREA NITROGEN 10 MG/DL (7-18); CHLORIDE 108 MEQ/L (98-107); FREE T4 1.61 NG/DL (0.76-1.46); GLOMERULAR FILTRATION RATE 84 ML/MIN (>89); GLUCOSE,FASTING 96 MG/DL (74-99); HDL CHOLESTEROL 43.6 MG/DL (40.0-60.0); LDL CHOLESTEROL 39 MG/DL (0-99); LDL CHOLESTEROL DIRECT 53 MG/DL (0-99); SODIUM (NA) 144 MEQ/L (136-145); TOTAL BILIRUBIN ADULT 0.4 MG/DL (0.2-1.0)
== END ==
LOC: PLAB 07:38
PROVIDERS: ATTEND Internal Medicine
DX: Z00.00 Encounter for general adult medical examination without abnormal findings (principal); E03.9 Hypothyroidism, unspecified; I10 Essential (primary) hypertension; E78.5 Hyperlipidemia, unspecified
CPT/HCPCS: 36415; 80053; 80061; 83721; 84439; 84443; 85027